=== PATIENT | male | born 1960 | race Caucasian/White ===

== ENCOUNTER → 2023-11-03 11:23 | Outpatient (REF) | payer MEDICARE, OTHER, SELFPAY | LOC: RAD 11:23 | PROVIDERS: ATTENDING PHYSICIAN Internal Medicine Rheumatology | DX: M54.2 Cervicalgia (principal); M25.512 Pain in left shoulder; M47.892 Other spondylosis, cervical region | CPT/HCPCS: 72040; 73010; 73030; 73130 ==

== ENCOUNTER → 2024-07-18 11:18 | Outpatient (REF) | payer MEDICARE, OTHER, SELFPAY | LOC: RAD 11:18 | PROVIDERS: ATTENDING PHYSICIAN Family Medicine | DX: S22.41XD Multiple fractures of ribs, right side, subsequent encounter for fracture with routine healing (principal) | CPT/HCPCS: 71111 ==

== ENCOUNTER → 2024-08-06 07:16 | Outpatient (REF) | payer MEDICARE, OTHER, SELFPAY | LOC: HWRAD 07:16 | PROVIDERS: ATTENDING PHYSICIAN Internal Medicine Gastroenterology; FAMILY PHYSICIAN Family Medicine | DX: K76.81 Hepatopulmonary syndrome (principal); R14.0 Abdominal distension (gaseous); R76.8 Other specified abnormal immunological findings in serum | CPT/HCPCS: 76700 ==

== ENCOUNTER → 2024-08-09 13:02 | Outpatient (REF) | payer MEDICARE, OTHER, SELFPAY | LOC: HWRCS 13:02 | PROVIDERS: ATTENDING PHYSICIAN Nurse Practitioner Family | DX: I26.94 Multiple subsegmental thrombotic pulmonary emboli without acute cor pulmonale (principal) | CPT/HCPCS: 93306 ==

== ENCOUNTER → 2024-09-02 10:05 | Outpatient (REF) | payer MEDICARE, OTHER, SELFPAY ==
[2024-09-02 11:54] LABS: % Basophils 0.6 % (0-2); % Eosinophils 1.3 % (0-6); % Immature Granulocytes 0.5 % (0-0.5); % Lymphocytes 18.4 % (20.5-51.1); % Neutrophils 73.2 % (42.2-75.2); Absolute Basophils 0.1 10^3/uL (0-0.2); Absolute Eosinophils 0.2 10^3/uL (0-0.7); Absolute Immature Granulocytes 0.1 10^3/uL (0-0.05); Absolute Lymphocytes 2.7 10^3/uL (1.2-3.4); Absolute Monocytes 0.9 10^3/uL (0.1-0.6); Absolute Neutrophils 10.6 10^3/uL (1.4-6.5); Hematocrit 44.4 % (39.0-52.0); Mean Corp Hgb Conc. 31.5 g/dL (33.0-37.0); Mean Corpuscular Hgb 28.5 pg (27.0-31.0); Mean Corpuscular Volume 90.2 fL (80.0-94.0); Mean Platelet Volume 11.7 fL (7.4-10.4); Nucleated Red Blood Cells % 0 % (-); Platelet Count 240 10^3/uL (130-400); Red Blood Cell Count 4.92 10^6/uL (4.70-6.10); Red Cell Dist. Width 14.8 % (11.5-14.5); White Blood Cell Count 14.5 10^3/uL (4.8-10.8)
[2024-09-02 12:03] LABS: INR 0.99; PT 13.4 Sec (11.4-14.6)
[2024-09-02 12:18] LABS: HDL Cholesterol 62 mg/dl; LDL Cholesterol, Calculated 70 mg/dl; Total Cholesterol 155 mg/dl (50-199); Triglyceride 116 mg/dl (10-149); Very Low Density Lipoprotein 23 mg/dl (0-30)
[2024-09-02 12:20] LABS: ALT (SGPT) 23 U/L (0-50); AST (SGOT) 20 U/L (17-59); Albumin 4.7 g/dl (3.5-5.0); Alkaline Phosphatase 84 U/L (38-126); Blood Urea Nitrogen 21 mg/dl (9-20); Calcium 9.8 mg/dl (8.4-10.2); Carbon Dioxide 30 mmol/L (22-30); Chloride 98 mmol/L (98-107); Creatine Phosphokinase 48 U/L (55-170); Glucose 86 mg/dl (70-99); Potassium 5.1 mmol/L (3.5-5.1); Sodium 142 mmol/L (135-145); Total Bilirubin 0.4 mg/dl (0.2-1.3); Total Protein 7.8 g/dl (6.3-8.2); eGFR > 60.00
[2024-09-02 12:39] LABS: Free T4 1.12 ng/dl (0.78-2.19)
[2024-09-02 12:49] LABS: Hepatitis B Surface Antigen Negative (Negative)
[2024-09-02 12:52] LABS: AFP Male/Tumor Marker 3.53 ng/ml
[2024-09-02 12:53] LABS: TSH 1.94 uIU/ml (0.47-4.68)
[2024-09-02 13:06] LABS: Erythrocyte Sed Rate 24 mm/hour (0-20)
[2024-09-02 13:07] LABS: Hepatitis A Antibody, Total Negative (Negative); Hepatitis B Core Ab, Total Reactive (Negative); Hepatitis B Surface Antibody Positive; Hepatitis C Antibody Negative (Negative)
[2024-09-02 15:35] LABS: Glycohemoglobin (HgbA1c) 6.5 % (4.0-5.6)
[2024-09-04 11:48] LABS: Quantiferon Mitogen minus NIL 9.97 IU/mL; Quantiferon NIL 0.03 IU/mL; Quantiferon Plus TB1 minus NIL 0.01 IU/mL (<=0.34); Quantiferon Plus TB2 minus NIL 0.01 IU/mL (<=0.34); Quantiferon TB Gold Plus Negative (Negative)
[2024-09-05 00:59] LABS: HBV Quant by NAAT IU/mL Not Detected; HBV Quant by NAAT Interp Not Detected (Not Detected); HBV Quant by NAAT Log IU/mL Not Detected log IU/mL
== END ==
LOC: REG 10:05
PROVIDERS: ATTENDING PHYSICIAN Nurse Practitioner Family; FAMILY PHYSICIAN Family Medicine; OTHER PHYSICIAN Internal Medicine Gastroenterology; REFERRING PHYSICIAN Internal Medicine Rheumatology
DX: E11.9 Type 2 diabetes mellitus without complications (principal); L40.59 Other psoriatic arthropathy; K76.0 Fatty (change of) liver, not elsewhere classified; R14.0 Abdominal distension (gaseous); R76.8 Other specified abnormal immunological findings in serum; M79.10 Myalgia, unspecified site; E11.59 Type 2 diabetes mellitus with other circulatory complications; E03.9 Hypothyroidism, unspecified; R97.8 Other abnormal tumor markers
CPT/HCPCS: 36415; 80053; 80061; 82105; 82550; 83036; 84439; 84443; 85025; 85610; 85652; 86140; 86480; 86704; 86706; 86708; 86803; 87340; 87517

== ENCOUNTER 2025-01-24 20:37 | Inpatient (IN) | payer MEDICARE, OTHER, SELFPAY ==
[2025-01-24] VITALS (10 sets, daily range): BP systolic 111–160; BP diastolic 76–99; BMI 32.6; BMI 31.3
[2025-01-24 13:03] LABS: % Basophils 0.8 % (0-2); % Eosinophils 2.6 % (0-6); % Immature Granulocytes 0.5 % (0-0.5); % Lymphocytes 14.2 % (20.5-51.1); % Neutrophils 72.9 % (42.2-75.2); Absolute Basophils 0.1 10^3/uL (0-0.2); Absolute Eosinophils 0.4 10^3/uL (0-0.7); Absolute Immature Granulocytes 0.1 10^3/uL (0-0.05); Absolute Lymphocytes 2.3 10^3/uL (1.2-3.4); Absolute Monocytes 1.4 10^3/uL (0.1-0.6); Absolute Neutrophils 11.6 10^3/uL (1.4-6.5); Hematocrit 47.3 % (39.0-52.0); Mean Corp Hgb Conc. 33.8 g/dL (33.0-37.0); Mean Corpuscular Volume 85.8 fL (80.0-94.0); Mean Platelet Volume 10.8 fL (7.4-10.4); Nucleated Red Blood Cells % 0 % (-); Platelet Count 282 10^3/uL (130-400); Red Blood Cell Count 5.51 10^6/uL (4.70-6.10); Red Cell Dist. Width 15.6 % (11.5-14.5)
[2025-01-24 13:25] LABS: ALT (SGPT) 31 U/L (0-50); AST (SGOT) 32 U/L (17-59); Albumin 4.3 g/dl (3.5-5.0); Alkaline Phosphatase 81 U/L (38-126); Blood Urea Nitrogen 17 mg/dl (9-20); Calcium 9.9 mg/dl (8.4-10.2); Carbon Dioxide 29 mmol/L (22-30); Chloride 101 mmol/L (98-107); Glucose 164 mg/dl (70-99); Potassium 4.9 mmol/L (3.5-5.1); Sodium 140 mmol/L (135-145); Total Bilirubin 0.8 mg/dl (0.2-1.3); Total Protein 7.6 g/dl (6.3-8.2); eGFR > 60.00
[2025-01-24 13:29] LABS: INR 0.96; PT 13.1 Sec (11.4-14.6)
[2025-01-24 13:44] LABS: NT-proBNP 4950 pg/ml; Troponin I 0.209 ng/ml
--- NOTE | 2025-01-24 14:23 | ED.GENMED ---
History of Present Illness
General
Chief Complaint: Swelling
Source: patient
Exam Limitations: none
Time Seen by Provider: 01/24/25 14:11
History of Present Illness
History of Present Illness:
64-year-old male presents with increasing swelling in the legs and dyspnea on exertion. He was recently started on Celebrex for his rheumatoid arthritis and he felt this was initially related to this medicine. He denies chest pain. He does have a
history of pulmonary embolism. He is no longer on blood thinners. No recent travel. No fevers. No other complaints at this time. History of NIDDM
Past History
Past History
ED Past Medical History: HTN, Hypercholesterolemia, Hypothyroidism and Other (BECK on CPAP, Psoriatic arthritis, bilateral PEs March, Hep B)
ED Past Surgical History: Orthopedic (laminectomy) and Other (Hernia, )
Social History
Tobacco: Former smoker
Alcohol: Occasional
Drug: None
Personal:
Living: with family
Phy Exam
Physical Exam
Physical Exam:
General: Well-appearing male no acute respiratory distress
HEENT: Normocephalic atraumatic
Heart: Regular rate and rhythm
Lungs: Clear no obvious wheeze or rales
Extremities: Mild pitting edema bilateral lower extremities
Abdomen is soft nontender
Scores
Heart Failure Risk
Heart Failure Risk Score: Not Applicable
Course
Orders/Labs/Results
Orders:
Orders
01/24/25 12:49
Electrocardiogram (*1) Urgent
Reason for Study: Other
Other Reason for Exam: Respiratory Distress
Cardiac Monitoring- Treatment ONCE
EKG- Treatment ONCE
IV Insert/Care/Rem.- Treatment PRN
CR Chest - 2 Views Urgent
Comment:
Reason For Exam: respiratory distress
O2 Therapy [RESP] Urgent
Titrate/Wean O2 to maintain O2 sat greater than (%): 93
Special Instructions: TO MAINTAIN CONTINUOUS O2 SATS >/= 93%
Pulse Ox/cont/shift [RESP] Urgent
Quantity: 1
Special Instructions: continuous pulse ox
01/24/25 12:55
Complete Blood Count/With Diff Urgent
Comprehensive Metabolic Panel Urgent
NT-proBNP Urgent
PT/INR [Prothrombin Time] Urgent
Troponin I Urgent
01/24/25 14:21
CT Chest PE Study Urgent
Comment:
Reason For Exam: sob, history of PE
01/24/25 15:14
HYDROmorphone [Dilaudid] 0.5 mg IV NOW STA
Ondansetron Injectable [Zofran] 4 mg IV NOW STA
01/24/25 16:34
Furosemide [Lasix] 60 mg IV NOW STA
Abnormal Lab Results
01/24/25
12:55
WBC 16.0 H 10^3/uL
(4.8-10.8)
RDW 15.6 H %
(11.5-14.5)
MPV 10.8 H fL
(7.4-10.4)
Abs Immat Gran (auto) 0.1 H 10^3/uL
(0-0.05)
Absolute Neuts (auto) 11.6 H 10^3/uL
(1.4-6.5)
Absolute Monos (auto) 1.4 H 10^3/uL
(0.1-0.6)
Lymphocytes % 14.2 L %
(20.5-51.1)
Glucose 164 H mg/dl
(70-99)
Troponin I 0.209 H* ng/ml
01/24/25 12:55
01/24/25 12:55
Vital Signs
Initial and Last Documented VS:
Initial Vital Signs
Temp Pulse Resp BP Pulse Ox
97.6 F 111 18 136/92 97
01/24/25 12:45 01/24/25 12:45 01/24/25 12:45 01/24/25 12:45 01/24/25 12:45
Last Documented Vital Signs
Temp Pulse Resp BP Pulse Ox
97.6 F 116 18 160/99 94
01/24/25 12:45 01/24/25 14:31 01/24/25 12:45 01/24/25 14:31 01/24/25 14:31
MDM/Problems Addressed
Differential Diagnosis Includes:
Increasing leg swelling dyspnea on exertion. Consider heart failure PE versus ACS
Troponin is elevated here at 0.2. EKG shows sinus rhythm without ischemic changes. BNP also elevated. Patient does have a history of PE but not currently anticoagulated.
PE study ordered secondary to shortness of breath and history of PE.
*Critical Care Note
Total Time (30-74mins, 75-104mins- exclusive of procedures): Not Applicable
Update Note
Update Note:
PE study negative. Troponin and BNP elevated. Suspect volume overload possibly CHF. Lasix ordered. Will admit to hospital
ED Attending Note
-
Portions of this chart may have been created with voice recognition software.� Occasional wrong word or��sound alike� substitutions may have occurred due to the inherent limitations of voice recognition software.
Discharge Plan
Departure
Patient Disposition: Admit
Date of Disposition: 01/24/25
Time of Disposition: 16:35
Presentation/result/management discussed w/ accepting MD/DO: Hospitalist
Discharge Problem:
CHF (congestive heart failure)
Prescriptions:
No Action
oxycodone 5 MG tablet
5 mg PO QID
Movantik 25 MG tablet
25 mg PO HS
prednisone 10 MG tablet
5 mg PO BID
amitriptyline 50 MG tablet
125 mg PO HS
buspirone [BuSpar] 5 mg Tablet
7.5 mg PO TID
metformin 850 mg Tablet
850 mg PO BID
baclofen 10 mg Tablet
10 mg PO TID
glimepiride 4 mg Tablet
4 mg PO QPM
levothyroxine [Synthroid] 150 mcg Tablet
150 mcg PO DAILY
Patient Comments:
patient alway been 150mcg not 125mcg
rosuvastatin [Crestor] 5 mg Tablet
5 mg PO QPM
oxycodone [OxyContin] 30 mg Tablet,Oral Only,Ext.Rel.12 Hr
30 mg PO BID
Referrals:
Kevon Bender DO [Family Provider] -
Interventions
Interventions:
*Risk Screen - Suicide Last Done: 01/24/25 12:45
*General Assessment Last Done: 01/24/25 12:45
*Neglect/Abuse Screening Last Done: 01/24/25 12:45
*ED- Fall Risk Assessment Last Done: 01/24/25 12:45
Discharge Date and Time
Print Language: SERBIAN
[2025-01-24] MEDS: ZOFRAN 4 MG IV (15:20)
[2025-01-24] MEDS: DILAUDID 0.5 MG IV (15:21)
[2025-01-24] MEDS: LASIX 60 MG IV (17:05)
--- NOTE | 2025-01-24 17:58 | HPS.HSE ---
Family Physician
-
Family Physician: Kevon Bender
Chief Complaint
-
Weakness headache shortness of breath nausea increased swelling bilateral leg
History of Present Illness
64-year-old male complaining of weakness, headache, shortness of breath, nausea with increased swelling to bilateral legs over the past 2 to 3 days. He reports recently starting on Celebrex 7 days ago for rheumatoid arthritis and thought this was a
side effect. He stopped the Celebrex 2 days ago due to feeling sick. He is actively complaining of severe nausea which he normally never has he denies any dyspepsia at all. He has history of sleep apnea stopped using his pillow nasal CPAP a few
months ago. He has been sleeping in a recliner due to chronic pain in his joints, back and anxiety when lying down he feels like he cannot catch his breath. He also had his BuSpar increased to twice daily from daily he is taking 7.5 mg twice a day
but states he still is extremely anxious all the time having panic attacks that he never used to have. He does not think that his 's diagnosis of breast cancer and her appointments has increased any kind of stress for him.
The patient has past medical history of rheumatoid arthritis, psoriatic arthritis, sleep apnea noncompliant nasal C pillow, chronic pain on chronic oral opiates, HTN, HLD, DM 2, hypothyroidism, bilateral PEs March 2021, hepatitis B, former smoker,
history of laminectomy, class I obesity.
Medical History
Past Medical History
Past Medical History: Reports Other
Additional Past Medical History:
rheumatoid arthritis
psoriatic arthritis
chronic pain on chronic oral opiates
HTN
HLD
DM 2
hypothyroidism
bilateral PEs March 2021
hepatitis B
former smoker
history of laminectomy
Past Surgical History: Reports Other
Additional Past Surgical History:
Laminectomy
Hernia repair
Social History
Tobacco: Non-smoker
Alcohol: None
Drug: None
Personal:
Living: With Family ()
Employment: Retired
Family History
Family History: Not pertinent
Allergies / Home Medications
Allergies reflects when Allergies were last updated in [facility].
Home Medications with original date entered in [facility]
Allergy/Medication List:
Allergies
Allergy/AdvReac Type Severity Reaction Status Date / Time
erythromycin base Allergy Unknown Verified 07/07/21 13:34
Penicillins Allergy Unknown Verified 07/07/21 13:34
tetracycline Allergy Unknown Verified 07/07/21 13:34
Home Medications
naloxegol 25 mg tablet (Movantik) 25 mg PO HS Constipation 04/09/21
oxycodone 5 mg tablet 5 mg PO QID 04/09/21
amitriptyline 50 mg tablet 125 mg PO HS mental health 04/13/21
prednisone 10 mg tablet 5 mg PO BID Anti-inflammatory 04/13/21
baclofen 10 mg tablet 10 mg PO TID 01/24/25
buspirone 5 mg tablet 7.5 mg PO TID 01/24/25
glimepiride 4 mg tablet 4 mg PO QPM 01/24/25
levothyroxine 150 mcg tablet (Synthroid) 150 mcg PO DAILY 01/24/25
metformin 850 mg tablet 850 mg PO BID 01/24/25
oxycodone 30 mg tablet,crush resistant,extended release 12 hr (OxyContin) 30 mg PO BID 01/24/25
rosuvastatin 5 mg tablet (Crestor) 5 mg PO QPM 01/24/25
Review of Systems
-
History Source: Patient
A 12 point ROS was completed and negative except as noted: Yes
Constitutional: Denies Fever or Chills
EENT: Denies Sore Throat or Runny Nose
Respiratory: Reports Trouble Breathing; Denies Cough
Cardiac: Denies Chest Pain or Syncope
Abdomen/GI: Reports Nausea; Denies Abdominal Pain, Vomiting, Diarrhea, Constipated, Bloody Stools or Black Stools
: Denies Dysuria, Frequency, Flank Pain, Incontinence or Difficulty Voiding
Musculoskeletal: Reports Edema (Trace bilateral ankles); Denies Joint Pain
Skin: Denies Itching or Rash
Neurological: Reports Headache; Denies Dizzy
Endocrine: Reports No Symptoms
Hematologic/Lymphatic: Reports No Symptoms
Psych: Reports Anxiety
Physical Exam
Vital Signs
Vital Signs
Temp Pulse Resp BP Pulse Ox
97.6 F 111 18 123/84 94
01/24/25 12:45 01/24/25 17:05 01/24/25 12:45 01/24/25 17:05 01/24/25 17:23
Physical Exam
General: No Fever or Chills
HEENT: NormoCephalic, Anicteric, Moist mucous membranes, PERRLA, [place] Conjunctivae and No Ptosis
Respiratory: Clear; No Wheezes, Rales or Rhonchi
Cardiac: S1/S2 and Regular Rhythm; No Murmur, Rub, Gallop or Peripheral Edema
Breast: Deferred by me
GI: Soft, Non Tender, Non Distended, Normal Bowel Sounds and No Hepatosplenomegaly
Rectal: Deferred by Provider
Genito-urinary: Deferred by me
Musculoskeletal: No Clubbing, No Cyanosis, Edema, Left Lower Extremity (Trace to ankle) and Edema, Right Lower Extremity (Trace to ankle); No Edema, Left Upper Extremity or Edema, Right Upper Extremity
Skin: Warm, Dry and Other (1 small psoriatic plaque left upper bicep)
Neuro: AO x 3, No Motor Deficits, Nonfocal/grossly intact, Cranial Nerves Intact and No Sensory Deficits; No Slurred Speech, Facial Droop, Tremors or Sedated
Psych: Anxious
Laboratory Results
-
01/24/25 12:55
01/24/25 12:55
Laboratory Results
PT 13.1 Sec (11.4-14.6) 01/24/25 12:55
INR 0.96 01/24/25 12:55
Total Bilirubin 0.8 mg/dl (0.2-1.3) 01/24/25 12:55
AST 32 U/L (17-59) 01/24/25 12:55
ALT 31 U/L (0-50) 01/24/25 12:55
Alkaline Phosphatase 81 U/L (38-126) 01/24/25 12:55
Troponin I 0.209 ng/ml H* 01/24/25 12:55
Impression/Plan
-
Impression/plan:
Admit to IVU
#NSTEMI
HOLD Celebrex started 7 days ago-patient stopped on 01/22/2025
Troponin 0.209 will trend
asa 325 mg now , 81 mg daily
Check lipid profile, HgbA1c
- clear liquid diet
-Consult [facility]ology
EKG: Sinus tach 105 bpm, QTc 475 MS T wave abnormality anterior lateral leads change from March 2021
2D echo 04/12/2021: EF 60-62%, normal LVS LVSF, normal RVS/RVF trace MR/TR, PASP 33 mmHg
#Rheumatoid arthritis
#Psoriatic arthritis
Patient started Celebrex 2 days ago WILL HOLD given NSTEMI and CHF
- Patient applies clobetasol ointment to psoriatic plaques has 1 small area to left upper bicep
#Acute CHF unclear type suspect diastolic given bilateral leg edema
BNP 4950
-640 mg given in ER would hold further dosing upon cardiac eval
-I/O, daily weights
-Check 2D echo
-Consult [facility] cardiology
CXR: Mild left lower lobe atelectasis versus scarring no
CT PE study: No evidence of PE
no acute abnormality identified in the chest
#Sleep apnea noncompliant with nasal pillow due to feeling anxious
Recommended to patient to retry nasal pillow while in the hospital he is willing
#Acute on chronic leukocytosis due to chronic prednisone use
WBC 16.3 no left shift, afebrile(levels vary from 11.9-16)
Patient on prednisone 5 mg twice daily
# Chronic pain on chronic oral opiates/chronic back pain with leg spasms
#Chronic constipation due to above opiates
- Continue OxyContin 30 mg twice daily, oxycodone 5 mg 4 times daily, baclofen 10 mg 3 times daily
- Continue Movantik 25 mg at bedtime
#DM 2
Hold metformin 850 mg p.o. twice daily patient received IV contrast on 01/24/2025
- Accu-Cheks with SSI, check HgbA1c
- Continue glimepiride 4 mg every afternoon
#HTN
-BP 123/84
HLD
- Continue Crestor 5 mg every afternoon
Hypothyroidism
- Continue levothyroxine 150 mcg p.o. daily
Bilateral PEs March 2021
#Anxiety
- Continue BuSpar 7.5 mg 3 times daily, amitriptyline 125 mg p.o. at bedtime
Other PMH:
Hepatitis B
former smoker
Class I obesity�BMI 32.6
Affects all aspects of care
Weight loss recommended
DVT prophylaxis
Subcu heparin
Full code
[2025-01-24] MEDS: TIGAN 200 MG IM (19:00)
[2025-01-24 19:31] LABS: Troponin I 0.194 ng/ml
--- NOTE | 2025-01-24 19:37 | W.PN.UPDATE ---
Update Note
Progress Note Update
This note serves as an addendum to the H&P by [employer] promotional sales HENRIQUE
Haydee JUANA
HPI
64M pw weakness, shortness of breath, nausea increased swelling bilateral leg.
- reports recently starting on Celebrex 7 days ago for rheumatoid arthriti
- He stopped the Celebrex 2 days ago due to feeling sick.
- actively complaining of severe nausea which he normally never has he denies any dyspepsia at all.
- HX BECK stopped using his pillow nasal CPAP a few months ago.
- has been sleeping in a recliner due to chronic pain in his joints, back and anxiety when lying down he feels like he cannot catch his breath.
PMHX :
Rheumatoid arthritis, psoriatic arthritis, sleep apnea noncompliant nasal C pillow, chronic pain on chronic oral opiates, HTN, HLD, DM 2, hypothyroidism, bilateral PEs March 2021, hepatitis B, former smoker, history of laminectomy, class I obesity.
Vital Signs
Temp Pulse Resp BP Pulse Ox
97.6 F 113 17 123/84 93
01/24/25 12:45 01/24/25 19:00 01/24/25 19:00 01/24/25 17:05 01/24/25 19:00
PE
Gen: Non toxic but Looks uncomfortable due to nausea and chr intermittent leg cramps sincne childhood
HEENT: aincteric
Neck: supple
Lungs: CTA
Cor: RRR , S1 S2, No Murmur,
Abdomen: soft, Non Tender, Non Distended, Normal Bowel Sounds
PROJECT ENGINEER: AAO3, NFND
MS: symmetric trace ankle Edema
Psych: anxious
Abnormal Lab Results
01/24/25 01/24/25
12:55 18:57
WBC 16.0 H
RDW 15.6 H
MPV 10.8 H
Abs Immat Gran (auto) 0.1 H
Absolute Neuts (auto) 11.6 H
Absolute Monos (auto) 1.4 H
Lymphocytes % 14.2 L
Glucose 164 H
Troponin I 0.209 H* 0.194 H*
CXR: Mild left lower lobe atelectasis versus scarring
CT PE study: No evidence of PE. No acute abnormality identified in the chest
EKG: Sinus tach 105 bpm, QTc 475 MS T wave abnormality anterior lateral leads change from March 2021
04/12/2021 ECHO : EF 60-62%, normal LVS LVSF, normal RVS/RVF trace MR/TR, PASP 33 mmHg
ASSESSMENT & PLAN
NSTEMI
- Abn EKG with T wave abnormality anterior lateral leads c
- Troponin 0.209 and trending down
- hold Celebrex started 2 days ago
- ASA loading and baby ASA daily
- trend TPNI
- Consult [facility]
Acute CHF unclear type
Bilateral trace ankle edema
BNP 4950
- IV lasix 40 x1
- Hold further IV lasix till seen by Card
- ECHO in AM
- I/O, daily weights
- [facility] card consult
DMT2 HX
- Hold metformin - patient received IV contrast on 01/24/2025
- Accu-Cheks with SSI, check HgbA1c
- Continue glimepiride 4 mg every afternoon
Benign HTN
-BP 123/84
HLD
- Continue Crestor daily
Hypothyroidism
- Continue levothyroxine 150 mcg p.o. daily
Rheumatoid arthritis HX
Psoriatic arthritis HX
- Patient started Celebrex 2 days ago WILL HOLD given NSTEMI and CHF
- Patient applies clobetasol ointment to psoriatic plaques has 1 small area to left upper bicep
Other PMH:
Hepatitis B
former smoker
Class I obesity�BMI 32.6 : Affects all aspects of care
DVT Px: SQH
Full Code
IVU
[2025-01-24] MEDS: ASPIRIN 325 MG PO (19:41)
[2025-01-24] MEDS: LIORESAL 10 MG PO ×2 (19:41→21:59)
--- NOTE | 2025-01-24 21:15 | CON.CAR ---
Consultation
Consultation Request
Date/Time Consultation Requested: 01/24/25 6:30pm
Date/Time Consultation Performed: 01/24/25 8:45pm
Requesting Provider: Dr Lay
Performing Provider: Dr Granados
Reason for Consultation: CHF
Medical History
-
Chief Complaint: nausea/sob
History of Present Illness:
64-year-old male with past medical history of psoriatic/rheumatoid arthritis, hypertension, hyperlipidemia, sleep apnea, diabetes, chronic steroid use, bilateral pulmonary embolism and hypothyroidism who presents with 5 days of leg edema, weakness,
nausea, edema, and shortness of breath. He has taken prednisone intermittently for 4 years. 7 days ago he started Celebrex for his chronic pain/rheumatoid arthritis and started feeling worse several days then. He had orthopnea, a 10 pound weight
gain, and shortness of breath. He has been sleeping in a recliner for months. He does get occasional chest aches but no overt chest tightness or exertional chest pressure. His energy is poor. He stopped the Celebrex several days ago. He has
abdominal pains and intermittent nausea. He takes chronic OxyContin and is a previous smoker.
Past Medical History
Past Medical History: HTN, Hypercholesterolemia, Hypothyroidism, NIDDM and Other (Obesity, chronic steroid and opiate use, rheumatoid arthritis, psoriatic arthritis, hepatitis B, sleep apnea)
Past Surgical History: Other (Laminectomy)
Social History
Tobacco: Former Smoker
Alcohol: Occasional
Drug: None
Personal:
Living: With Family
Employment: Disabled
Family History
Family History: CAD and Hypertension
Allergies / Home Medications
Allergy/AdvReac Type Severity Reaction Status Date / Time
erythromycin base Allergy Unknown Verified 07/07/21 13:34
Penicillins Allergy Unknown Verified 07/07/21 13:34
tetracycline Allergy Unknown Verified 07/07/21 13:34
�Medication �Instructions �Recorded �Confirmed �Type
naloxegol 25 mg tablet (Movantik) 25 mg PO HS Constipation 04/09/21 01/24/25 History
oxycodone 5 mg tablet 5 mg PO QID 04/09/21 01/24/25 History
amitriptyline 50 mg tablet 125 mg PO mental health 04/13/21 01/24/25 History
prednisone 10 mg tablet 5 mg PO BID Anti-inflammatory 04/13/21 01/24/25 History
baclofen 10 mg tablet 10 mg PO TID 01/24/25 01/24/25 History
buspirone 5 mg tablet 7.5 mg PO TID 01/24/25 01/24/25 History
glimepiride 4 mg tablet 4 mg PO QPM 01/24/25 01/24/25 History
levothyroxine 150 mcg tablet 150 mcg PO DAILY 01/24/25 01/24/25 History
(Synthroid)
metformin 850 mg tablet 850 mg PO BID 01/24/25 01/24/25 History
oxycodone 30 mg tablet,crush 30 mg PO BID 01/24/25 01/24/25 History
resistant,extended release 12 hr
(OxyContin)
rosuvastatin 5 mg tablet (Crestor) 5 mg PO QPM 01/24/25 01/24/25 History
Review of Systems
-
History Source: Patient
Constitutional: Weight Gain and Fatigue
Respiratory: Trouble Breathing
Cardiac: No Symptoms
Abdomen/GI: Nausea
: No Symptoms
Musculoskeletal: Joint Pain, Muscle Pain and Edema
Skin: No Symptoms
Neurological: No Symptoms
Endocrine: No Symptoms
Hematologic/Lymphatic: No Symptoms
Physical Exam
Vital Signs
Temp Pulse Resp BP Pulse Ox
97.6 F 121 15 116/95 90
01/24/25 12:45 01/24/25 20:30 01/24/25 20:30 01/24/25 20:00 01/24/25 19:04
Lab Results
01/24/25 12:55
01/24/25 12:55
Troponin I 0.194 ng/ml H* 01/24/25 18:57
Zfc-[id number]-Xekteudsobd Pept 4950 pg/ml 01/24/25 12:55
Physical Exam
General: Well Developed and No Apparent Distress
HEENT: Normocephalic and Anicteric
Respiratory: Rhonchi and Non Labored Respirations
Cardiac: S1/S2, Regular Rhythm and Murmur (Tachycardic, 1/6 systolic murmur left sternal border)
GI: Soft, Tender and Distended
Musculoskeletal: Edema
Skin: Warm and Dry
Neuro: AO x 3
Psych: Calm
Impression / Plan
-
Assessment:
Acute heart failure with preserved ejection fraction
Abnormal troponin/nonischemic myocardial injury
Hypertension
Hyperlipidemia
Diabetes type 2
History of bilateral pulmonary embolism 2021
Hepatitis B
Rheumatoid arthritis/psoriatic arthritis on chronic opioids
Hypothyroidism
Chronic steroid use.
Echo July 2024, EF 55 6%, mild LVH, no significant valve disease with PA pressure 30
EKG with sinus tachycardia and anterior T wave abnormalities
CT scan 01/24/2025, no pulmonary embolism
Plan:
He presents with volume overload, abnormal proBNP and acute heart failure with presumed preserved ejection fraction. I reviewed his last echocardiogram from 2023 which had a normal EF, mild LVH and no significant valve disease.
Clinically he is volume overloaded and we will start Lasix 40 mg IV daily. His EKG is also abnormal with an abnormal troponin. I suspect his ejection fraction may have declined with his sinus tachycardia and abnormal T wave abnormalities.
We will repeat an echocardiogram. He likely will also need an ischemic evaluation as I suspect he may have significant coronary artery disease.
Continue aspirin 81 mg daily. Would start Toprol 25 mg daily.
Check TSH and free T4.
His troponin is abnormal at 0.2 but has decreased down to 0.19. Pending the results of his echocardiogram he may need a cardiac catheterization.
Data Reviewed
-
EKG: Report Reviewed by me
CT Scan: Report Reviewed by me
Medical Tests (Nuc Med, Echo etc): Report Reviewed by me
Labs: Labs Reviewed by me
Old Records: Reviewed
[2025-01-24 21:50] LABS: Glucose - Point of Care 149 mg/dl (70-99)
[2025-01-24] MEDS: HEPARIN 5000 UNITS SC (21:59)
[2025-01-24] MEDS: BUSPAR 7.5 MG PO (21:59)
[2025-01-24] MEDS: DELTASONE 5 MG PO (21:59)
[2025-01-24] MEDS: ROXICODONE 5 MG PO (21:59)
[2025-01-24] MEDS: ELAVIL 125 MG PO (21:59)
[2025-01-24] MEDS: OXYCONTIN (CONTROLLED RELEASE) 30 MG PO (22:49)
--- NOTE | 2025-01-24 23:15 | PTCARENOTE ---
Patient received from ED via stretcher. Ambulated to bed with single point cane. Patient denies chest pain. Endorses right lower leg cramping and severe pain. Scheduled pain medications administered, see MAR. Patient's home medication, oxycodone
5mg, counted at bedside and then taken to pharmacy to be stored until discharge. Patient acknowledged that his home medication would be kept in the pharmacy until discharge, signed home medication form. Sinus tach on monitor. Oxygen saturation on
room air initially 98%, once the patient fell asleep SaO2 noted to decrease to 88-89%, 2L NC applied as patient feels he cannot tolerate CPAP due to anxiety. Plan of care discussed with patient. Call nelson within reach. Care ongoing.
[2025-01-25] VITALS (8 sets, daily range): BP systolic 104–118; BP diastolic 66–81; BMI 31.2
[2025-01-25 04:22] LABS: % Basophils 0.9 % (0-2); % Eosinophils 1.9 % (0-6); % Immature Granulocytes 0.4 % (0-0.5); % Lymphocytes 18.6 % (20.5-51.1); % Monocytes 12.9 % (1.7-9.3); % Neutrophils 65.3 % (42.2-75.2); Absolute Basophils 0.1 10^3/uL (0-0.2); Absolute Eosinophils 0.3 10^3/uL (0-0.7); Absolute Immature Granulocytes 0.1 10^3/uL (0-0.05); Absolute Lymphocytes 2.5 10^3/uL (1.2-3.4); Absolute Monocytes 1.7 10^3/uL (0.1-0.6); Absolute Neutrophils 8.7 10^3/uL (1.4-6.5); Hematocrit 47.3 % (39.0-52.0); Hemoglobin 15.8 g/dL (13.0-18.0); Mean Corp Hgb Conc. 33.4 g/dL (33.0-37.0); Mean Corpuscular Hgb 28.9 pg (27.0-31.0); Mean Corpuscular Volume 86.6 fL (80.0-94.0); Mean Platelet Volume 10.8 fL (7.4-10.4); Nucleated Red Blood Cells % 0 % (-); Platelet Count 288 10^3/uL (130-400); Red Blood Cell Count 5.46 10^6/uL (4.70-6.10); Red Cell Dist. Width 15.8 % (11.5-14.5); White Blood Cell Count 13.4 10^3/uL (4.8-10.8)
[2025-01-25 04:48] LABS: ALT (SGPT) 29 U/L (0-50); AST (SGOT) 30 U/L (17-59); Alkaline Phosphatase 73 U/L (38-126); Blood Urea Nitrogen 23 mg/dl (9-20); Calcium 9.3 mg/dl (8.4-10.2); Carbon Dioxide 28 mmol/L (22-30); Chloride 103 mmol/L (98-107); Estimated Creatinine Clearance 82 ml/min; Glucose 172 mg/dl (70-99); HDL Cholesterol 42 mg/dl; LDL Cholesterol, Calculated 51 mg/dl; Potassium 4.9 mmol/L (3.5-5.1); Sodium 141 mmol/L (135-145); Total Bilirubin 0.7 mg/dl (0.2-1.3); Total Cholesterol 149 mg/dl (50-199); Triglyceride 284 mg/dl (10-149); Very Low Density Lipoprotein 56 mg/dl (0-30); eGFR > 60.00
[2025-01-25 05:16] LABS: TSH Reflex To Free T4 3.67 uIU/ml (0.47-4.68)
[2025-01-25 05:35] LABS: Hepatitis C Antibody Negative (Negative)
[2025-01-25] MEDS: SYNTHROID 150 MCG PO (06:07)
[2025-01-25 08:07] LABS: Glucose - Point of Care 163 mg/dl (70-99)
--- NOTE | 2025-01-25 08:25 | W.PN.CARDCBS ---
Today's Communication / Plan
-
Echo today
Uptitrate beta-linette
Ultimate SGLT2 antagonist, spironolactone, likely REGINALDO/ARB or Entresto
Start heparin
Eventual cath, timing to be determined
Impression / Plan
-
Assessment:
Acute heart failure, suspect suspect reduced EF
Abnormal troponin/nonischemic myocardial injury
Hypertension
Hyperlipidemia
Diabetes type 2
History of bilateral pulmonary embolism 2021
Hepatitis B
Rheumatoid arthritis/psoriatic arthritis on chronic opioids
Hypothyroidism
Chronic steroid use.
Echo July 2024, EF 55 6%, mild LVH, no significant valve disease with PA pressure 30
EKG with sinus tachycardia and anterior T wave abnormalities
CT scan 01/24/2025, no pulmonary embolism
Plan:
He presents with heart failure and EKG changes potentially consistent with a reduced EF and possible [id number] myocardial infarction. Symptoms of chest pain, fluid retention coincided with onset of Celebrex use.
Troponins are flat, but his EKG changes suggest an interval inferior myocardial infarction since 2020 or 2021.
Suspect LV EF may have dropped.
He has ongoing chest discomfort.It sounds GI, but is difficult to be certain.
Will check echocardiogram today, for now, switch to short acting metoprolol.
Ultimately, will likely need SGLT2 antagonist, REGINALDO or ARB, spironolactone, in addition to long-acting beta-linette, possibly consider Entresto.
If ongoing chest discomfort, and we are convinced it is potentially ischemic he may need to go to the lab today.
Progress Note - Brick Grader
Subjective
Date of Service: January 25, 2025:
64-year-old man admitted with progressive edema, weakness, weight gain and dyspnea after starting Celebrex, found to be in acute heart failure with unknown EF
PMH/PSH diabetes, pulmonary embolus 2021, hepatitis B, rheumatoid arthritis, psoriatic arthritis, hypothyroidism, chronic steroid use, laminectomy, herniorrhaphy
Current meds aspirin 81 mg a day, metoprolol ER 25 mg a day, furosemide 40 mg IV daily, subcu heparin, amitriptyline, baclofen, BuSpar, glimepiride, levothyroxine, oxycodone, rosuvastatin
112/81, pulse 95, respiratory 16, sats 96%, weight is 104.3 kg, if accurate was 109 kg on admission, complaining of 'angina'
Onset since Monday, head neck exam unremarkable, lungs are clear relatively tachycardic, JVD okay no obvious murmurs abdomen very obese extremities trace edema
White count 13.4, BUN/creatinine 23 and 1.1, potassium 4.9, troponin flat 0.190, proBNP 4950
CT chest: No pulmonary embolus
Chest x-ray possible mild vascular congestion-not impressive
ECG sinus rhythm, consider anterolateral ischemia, consider anterior ND, inferior ND
Objective
Labs:
01/25/25 04:10
01/25/25 04:10
Labs
Hgb 15.8 g/dL (13.0-18.0) 01/25/25 04:10
Hct 47.3 % (39.0-52.0) 01/25/25 04:10
Plt Count 288 10^3/uL (130-400) 01/25/25 04:10
PT 13.1 Sec (11.4-14.6) 01/24/25 12:55
INR 0.96 01/24/25 12:55
Sodium 141 mmol/L (135-145) 01/25/25 04:10
Potassium 4.9 mmol/L (3.5-5.1) 01/25/25 04:10
BUN 23 mg/dl (9-20) H 01/25/25 04:10
Creatinine 1.1 mg/dL (0.7-1.3) 01/25/25 04:10
Glucose 172 mg/dl (70-99) H 01/25/25 04:10
Troponins
05/06/1201/24/25 01/24/25
12:55 18:57 21:53
Troponin I 0.209 H* 0.194 H* 0.190 H*
Vital Signs and I&O:
Vital Signs
Temp Pulse Resp BP Pulse Ox
36.7 C 95 18 112/81 93
01/25/25 08:02 01/25/25 06:00 01/25/25 08:02 01/25/25 04:04 01/25/25 08:02
Vital Signs
Temp Pulse Resp BP Pulse Ox
36.7 C 95 18 112/81 93
01/25/25 08:02 01/25/25 06:00 01/25/25 08:02 01/25/25 04:04 01/25/25 08:02
Intake & Output
01/23/25 01/24/25 01/25/25 01/26/25
07:59 07:59 07:59 07:59
Intake Total 500 / 500
Balance 500 / 500
Physical Exam
Physical Exam
See above
[2025-01-25 08:27] LABS: Glycohemoglobin (HgbA1c) 6.6 % (4.0-5.6)
--- NOTE | 2025-01-25 08:35 | W.PN.HOSP.TC ---
Today's Communication/Plan
-
Continue Heparin Drip
See plan
Assessment / Plan
Assessment / Plan
Physical Exam
General: Not in acute distress
HEENT: Normocephalic, Moist mucous membranes
Respiratory: Rhonchi bilaterally
Cardiac: S1/S2 and Regular Rhythm
GI: Soft, Non Tender, Non Distended, Normal Bowel Sounds
Musculoskeletal: No Cyanosis. Edema, Left Lower Extremity (Trace to ankle) and Edema, Right Lower Extremity (Trace to ankle)
Skin: Warm, Dry
Neuro: AAO x 3, Nonfocal/grossly intact
Psych: Calm
Assessment/Plan
64-year-old male with past medical history of past medical history of rheumatoid arthritis, psoriatic arthritis, sleep apnea noncompliant nasal C pillow, chronic pain on chronic oral opiates, HTN, HLD, DM 2, hypothyroidism, bilateral PEs March 2021,
hepatitis B, former smoker, history of laminectomy and class I obesity, presented complaining of weakness, headache, shortness of breath, nausea with increased swelling to bilateral legs over the past 2 to 3 days. He reported recently starting on
Celebrex within 1 week prior to presentation for rheumatoid arthritis and thought this was a side effect. He stopped the Celebrex 2 days prior to presentation due to feeling sick. He has actively complaining of severe nausea which he normally
never has he denies any dyspepsia at all. He has history of sleep apnea stopped using his pillow nasal CPAP a few months ago. He has been sleeping in a recliner due to chronic pain in his joints, back and anxiety when lying down he feels like he
cannot catch his breath. He also had his BuSpar increased to twice daily from daily he is taking 7.5 mg twice a day but states he still is extremely anxious all the time having panic attacks that he never used to have. He does not think that his
's diagnosis of breast cancer and her appointments has increased any kind of stress for him.
#Presentation with weakness, headache, shortness of breath, nausea with increased swelling to bilateral lower extremities
#Acute Heart Failure, with reduced ejection fraction
#Abnormal troponin/nonischemic myocardial injury
#Possible NSTEMI prior to arrival to the hospital
#Chest Pain
-Suspected at least partly from Celebrex use
-Continue beta linette short acting
-Heparin Drip
-IV Lasix
-Echo with EF 30 to 35%
-Cardiac cath this hospitalization
-Consult [facility]
-If ongoing chest pain, contact cardiology STAT
#Rheumatoid arthritis
#Psoriatic arthritis
#Chronic Steroid Use for the above
- Patient started Celebrex 2 days prior to presentation WILL HOLD given NSTEMI and CHF
- Patient applies clobetasol ointment to psoriatic plaques has 1 small area to left upper bicep
#Sleep apnea noncompliant with nasal pillow due to feeling anxious
Recommended to patient to retry nasal pillow while in the hospital he is willing
#Acute on chronic leukocytosis due to chronic prednisone use
WBC 16.3 no left shift, afebrile(levels vary from 11.9-16)
Patient on prednisone 5 mg twice daily
# Chronic pain on chronic oral opiates/chronic back pain with leg spasms
#Chronic constipation due to above opiates
- Continue OxyContin 30 mg twice daily, oxycodone 5 mg 4 times daily, baclofen 10 mg 3 times daily
- Continue Movantik 25 mg at bedtime
#Type 2 Diabetes Mellitus
- Hold metformin 850 mg p.o. twice daily patient received IV contrast on 01/24/2025
- Accu-Cheks with SSI, check HgbA1c
- Continue glimepiride 4 mg every afternoon
#Hypertension
-Continue beta linette for now
#Hyperlipidemia
- Continue Crestor 5 mg every afternoon
#Hypothyroidism
- Continue levothyroxine 150 mcg p.o. daily
#History of Bilateral Pulmonary Emboli 2021 (or was it summer?)
- Not on anticoagulation at home per home med rec
#Anxiety
- Continue BuSpar 7.5 mg 3 times daily, amitriptyline 125 mg p.o. at bedtime
#Hepatitis B
#Former smoker
#Anxiety
-Despite recently increasing his Buspar, still he stated he still is extremely anxious all the time having panic attacks
#Obesity
#History of laminectomy
#History of herniorrhaphy
DVT Prophylaxis: Subq heparin
Code Status: Full code
Anticipated Discharge: > 48 hours
Subjective/Interval History
-
Date of Service: January 25, 2025
Patient was seen and examined. He denied any new symptoms or complaints, feeling better now.
Objective Data
-
Labs:
Laboratory Results
01/25/25
04:10
WBC 13.4 H
Hgb 15.8
Hct 47.3
Plt Count 288
Sodium 141
Potassium 4.9
Chloride 103
Carbon Dioxide 28
BUN 23 H
Creatinine 1.1
Glucose 172 H
Calcium 9.3
Total Bilirubin 0.7
AST 30
ALT 29
Alkaline Phosphatase 73
Vital Signs:
Vital Signs
Temp Pulse Resp BP Pulse Ox
98.0 F 95 18 112/81 93
01/25/25 08:02 01/25/25 06:00 01/25/25 08:02 01/25/25 04:04 01/25/25 08:02
I&O
01/24/25 01/25/25 01/26/25
06:59 06:59 06:59
Intake Total 500 / 500
Balance 500 / 500
[2025-01-25] MEDS: BUSPAR 7.5 MG PO ×3 (09:03→21:44)
[2025-01-25] MEDS: DELTASONE 5 MG PO ×2 (09:03→20:11)
[2025-01-25] MEDS: NOVOLOG FLEXPEN-LOW RESISTANCE 1 UNITS SC ×2 (09:03→13:52)
[2025-01-25] MEDS: OXYCONTIN (CONTROLLED RELEASE) 30 MG PO ×2 (09:04→20:11)
[2025-01-25] MEDS: LASIX 40 MG IV (09:04)
[2025-01-25] MEDS: ASPIR LOW (ENTERIC COATED) 81 MG PO (09:04)
[2025-01-25] MEDS: LIORESAL 10 MG PO ×3 (09:04→21:43)
[2025-01-25] MEDS: ROXICODONE 5 MG PO ×4 (09:05→21:43)
[2025-01-25 09:29] LABS: Hematocrit 48.5 % (39.0-52.0); Hemoglobin 16.1 g/dL (13.0-18.0); Mean Corp Hgb Conc. 33.2 g/dL (33.0-37.0); Mean Corpuscular Hgb 28.7 pg (27.0-31.0); Mean Corpuscular Volume 86.5 fL (80.0-94.0); Mean Platelet Volume 10.8 fL (7.4-10.4); Platelet Count 276 10^3/uL (130-400); Red Blood Cell Count 5.61 10^6/uL (4.70-6.10); Red Cell Dist. Width 15.9 % (11.5-14.5); White Blood Cell Count 10.9 10^3/uL (4.8-10.8)
[2025-01-25 09:36] LABS: APTT 27.7 Sec (23.4-35.0)
[2025-01-25] MEDS: HEPARIN SC (09:56)
[2025-01-25] MEDS: HEPARIN 25000 UNITS/250 ML IV (10:46)
[2025-01-25] MEDS: LOPRESSOR 25 MG PO ×4 (10:51→23:38)
[2025-01-25] MEDS: TIGAN 200 MG IM (11:46)
--- NOTE | 2025-01-25 12:00 | PTCARENOTE ---
Pt denies chest pain at present, repeat troponin 0.090, echo completed at bedside. Heparin drip initiated as per order, infusing at 1000u/hr. Instructed to inform staff of any pain or discomfort.
[2025-01-25 13:13] LABS: Glucose - Point of Care 176 mg/dl (70-99)
[2025-01-25] MEDS: PROTONIX IV 40 MG IV (15:48)
[2025-01-25] MEDS: NSS (PRESERVATIVE FREE) 10 ML IV (15:50)
[2025-01-25 16:58] LABS: APTT 31.2 Sec (23.4-35.0)
[2025-01-25 17:28] LABS: Glucose - Point of Care 144 mg/dl (70-99)
[2025-01-25] MEDS: NOVOLOG FLEXPEN-LOW RESISTANCE SC (17:28)
[2025-01-25] MEDS: AMARYL 4 MG PO (17:50)
[2025-01-25] MEDS: CRESTOR 20 MG PO (17:50)
--- NOTE | 2025-01-25 20:00 | PTCARENOTE ---
received pt from previous rn. pt AAOx4, NSR per tele monitor HR 80s. trace L/E edema noted. lungs decreased w/ crackles noted in the bases. pox 93% on RA. +bs. pt voiding in urinal. skin intact. piv intact infusing heparin per protocol. plan of care
discussed questions encouraged. call nelson within reach
[2025-01-25 21:17] LABS: Glucose - Point of Care 121 mg/dl (70-99)
[2025-01-25] MEDS: ELAVIL 125 MG PO (21:45)
[2025-01-25 23:03] LABS: Glucose - Point of Care 99 mg/dl (70-99)
[2025-01-25 23:28] LABS: Glucose - Point of Care 103 mg/dl (70-99)
[2025-01-26] VITALS (8 sets, daily range): BP systolic 113–150; BP diastolic 71–97; BMI 31.6
[2025-01-26 00:02] LABS: APTT 35.5 Sec (23.4-35.0)
[2025-01-26 06:00] LABS: % Basophils 1.1 % (0-2); % Eosinophils 4.2 % (0-6); % Immature Granulocytes 0.4 % (0-0.5); % Lymphocytes 22.8 % (20.5-51.1); % Monocytes 10.8 % (1.7-9.3); % Neutrophils 60.7 % (42.2-75.2); Absolute Basophils 0.1 10^3/uL (0-0.2); Absolute Eosinophils 0.4 10^3/uL (0-0.7); Absolute Lymphocytes 2.3 10^3/uL (1.2-3.4); Absolute Monocytes 1.1 10^3/uL (0.1-0.6); Absolute Neutrophils 6.2 10^3/uL (1.4-6.5); Hematocrit 46.1 % (39.0-52.0); Hemoglobin 15.1 g/dL (13.0-18.0); Mean Corp Hgb Conc. 32.8 g/dL (33.0-37.0); Mean Corpuscular Hgb 28.8 pg (27.0-31.0); Mean Platelet Volume 11.1 fL (7.4-10.4); Nucleated Red Blood Cells % 0 % (-); Platelet Count 227 10^3/uL (130-400); Red Blood Cell Count 5.24 10^6/uL (4.70-6.10); Red Cell Dist. Width 15.9 % (11.5-14.5); White Blood Cell Count 10.2 10^3/uL (4.8-10.8)
[2025-01-26 06:03] LABS: ALT (SGPT) 30 U/L (0-50); APTT 44.4 Sec (23.4-35.0); AST (SGOT) 30 U/L (17-59); Albumin 3.8 g/dl (3.5-5.0); Alkaline Phosphatase 70 U/L (38-126); Blood Urea Nitrogen 36 mg/dl (9-20); Calcium 8.9 mg/dl (8.4-10.2); Carbon Dioxide 29 mmol/L (22-30); Chloride 102 mmol/L (98-107); Estimated Creatinine Clearance 65 ml/min; Glucose 141 mg/dl (70-99); Magnesium 2.4 mg/dl (1.6-2.3); Potassium 4.7 mmol/L (3.5-5.1); Sodium 139 mmol/L (135-145); Total Bilirubin 0.7 mg/dl (0.2-1.3); Total Protein 6.8 g/dl (6.3-8.2); eGFR 55.43
[2025-01-26] MEDS: SYNTHROID 150 MCG PO (06:27)
[2025-01-26] MEDS: LOPRESSOR 25 MG PO (06:27)
[2025-01-26] MEDS: HEPARIN 25000 UNITS/250 ML IV ×2 (07:30→21:36)
[2025-01-26] MEDS: ROXICODONE 5 MG PO ×4 (08:15→21:30)
[2025-01-26] MEDS: OXYCONTIN (CONTROLLED RELEASE) 30 MG PO ×2 (08:15→20:25)
[2025-01-26] MEDS: DELTASONE 5 MG PO ×2 (08:15→20:25)
[2025-01-26] MEDS: LASIX 40 MG IV (08:16)
[2025-01-26] MEDS: PROTONIX 40 MG PO (08:16)
[2025-01-26] MEDS: LIORESAL 10 MG PO ×3 (08:16→21:30)
[2025-01-26] MEDS: ASPIR LOW (ENTERIC COATED) 81 MG PO (08:16)
[2025-01-26 08:36] LABS: Glucose - Point of Care 117 mg/dl (70-99)
--- NOTE | 2025-01-26 08:52 | W.PN.CARDCBS ---
Today's Communication / Plan
-
Hold furosemide
Consolidate beta-linette
Continue heparin aspirin
Eventual GDMT for LV dysfunction, PA
Cardiac catheterization in a.m. if renal function permits
Impression / Plan
-
Assessment:
Acute heart failure, suspect suspect reduced EF
Abnormal troponin/nonischemic myocardial injury
Hypertension
Hyperlipidemia
Diabetes type 2
History of bilateral pulmonary embolism 2021
Hepatitis B
Rheumatoid arthritis/psoriatic arthritis on chronic opioids
Hypothyroidism
Chronic steroid use.
Echo July 2024, EF 55 6%, mild LVH, no significant valve disease with PA pressure 30
EKG with sinus tachycardia and anterior T wave abnormalities
CT scan 01/24/2025, no pulmonary embolism
Echo 01/25/2025: EF 30-35%, hypokinesis in inferior and LAD distribution, apex is akinetic, moderate LVH, normal RV, normal atria, aortic sclerosis, mitral valve normal, could not determine pulmonary artery pressure
Plan:
Overall he looks much better with regards to acute heart failure. Volume status seems appropriate, no dyspnea.
It seems he had a recent kau-hl-bdqkdnxy PA based on evolution of EKG. However troponin is not dramatically elevated. He has moderate to severe LV dysfunction in the distribution of the LAD and RCA. Suspect multivessel CAD, though entities such
as Takotsubo are still on the list of possible issues.
His heart rate is better controlled on metoprolol. Will consolidate metoprolol to metoprolol ER 50 mg twice daily. Continue aspirin and heparin. Eventual GDMT as renal function, blood pressure etc. permits.
He has acute kidney injury likely related to furosemide. Creatinine is up to 1.4. Will hold furosemide.
Symptoms of nausea seem improved with proton pump inhibitor.
Presuming renal function adequate, catheterization in a.m.
Progress Note - Draw Operator
Subjective
Date of Service: January 26, 2025:
64-year-old man admitted with acute heart failure, suspected to have had possible recent [id number] PA, EF 30-35% with detectable but not elevated and declining troponin. He feels much better today. Nausea from yesterday is resolved. He had
received a proton pump inhibitor yesterday and again today.
PMH: Hypertension, hyperlipidemia, diabetes, bilateral pulmonary embolism, hepatitis B, rheumatoid and psoriatic arthritis, hypothyroidism, steroid use
Current medications: IV heparin, furosemide 40 mg a day, amitriptyline 125 mg daily, Bioseal 10 mg 3 times daily, BuSpar 7.5 mg 3 times daily, Amaryl 4 mg daily, levothyroxine 150 mcg daily, oxycodone, aspirin 81 mg a day, prednisone 5 mg twice
daily, metoprolol tartrate 25 every 6, rosuvastatin 20 mg a day, pantoprazole
113/90, pulse 79 intake and output incomplete, weight is 105.5 kg up 1.2 kg, looks much brighter, lungs are clear, regular rate and rhythm, obese, no edema
ECG with evolving anterolateral T wave inversions, anterior PA, prior inferior PA
Hemoglobin is 15, platelets are 227, BUN/creatinine are 36 and 1.4, creatinine had been 1.1, potassium is 4.7, troponin yesterday was 0.09
Objective
Labs:
01/26/25 05:38
01/26/25 05:38
Labs
Hgb 15.1 g/dL (13.0-18.0) 01/26/25 05:38
Hct 46.1 % (39.0-52.0) 01/26/25 05:38
Plt Count 227 10^3/uL (130-400) 01/26/25 05:38
PT 13.1 Sec (11.4-14.6) 01/24/25 12:55
INR 0.96 01/24/25 12:55
APTT 44.4 Sec (23.4-35.0) H 01/26/25 05:38
Sodium 139 mmol/L (135-145) 01/26/25 05:38
Potassium 4.7 mmol/L (3.5-5.1) 01/26/25 05:38
BUN 36 mg/dl (9-20) H 01/26/25 05:38
Creatinine 1.4 mg/dL (0.7-1.3) H 01/26/25 05:38
Glucose 141 mg/dl (70-99) H 01/26/25 05:38
Troponins
01/24/25 01/24/25 01/24/25
12:55 18:57 21:53
Troponin I 0.209 H* 0.194 H* 0.190 H*
01/25/25
09:15
Troponin I 0.090 H*
Vital Signs and I&O:
Vital Signs
Temp Pulse Resp BP Pulse Ox
37.1 C 79 20 113/90 95
01/26/25 07:28 01/26/25 04:00 01/26/25 07:28 01/26/25 03:31 01/26/25 07:28
Vital Signs
Temp Pulse Resp BP Pulse Ox
37.1 C 79 20 113/90 95
01/26/25 07:28 01/26/25 04:00 01/26/25 07:28 01/26/25 03:31 01/26/25 07:28
Intake & Output
01/24/25 01/25/25 01/26/25 01/27/25
07:59 07:59 07:59 07:59
Intake Total 500 / 500 600 / 600
Output Total 900 / 900
Balance 500 / 500 -300 / -300
Physical Exam
Physical Exam
See above
[2025-01-26] MEDS: NOVOLOG FLEXPEN-LOW RESISTANCE SC ×3 (08:56→17:09)
[2025-01-26] MEDS: BUSPAR 7.5 MG PO ×3 (09:41→21:31)
[2025-01-26] MEDS: TOPROL XL 50 MG PO ×2 (09:43→20:26)
[2025-01-26 12:59] LABS: Glucose - Point of Care 136 mg/dl (70-99)
[2025-01-26 13:43] LABS: APTT 48.6 Sec (23.4-35.0)
--- NOTE | 2025-01-26 15:58 | W.PN.HOSP.TC ---
Today's Communication/Plan
-
Cardiac cath tomorrow
Continue Heparin Drip
Assessment / Plan
Assessment / Plan
Physical Exam
General: Not in acute distress
HEENT: Normocephalic, Moist mucous membranes
Respiratory: Rhonchi bilaterally
Cardiac: S1/S2 and Regular Rhythm
GI: Soft, Non Tender, Non Distended, Normal Bowel Sounds
Musculoskeletal: No Cyanosis. Edema, Left Lower Extremity (Trace to ankle) and Edema, Right Lower Extremity (Trace to ankle)
Skin: Warm, Dry
Neuro: AAO x 3, Nonfocal/grossly intact
Psych: Calm
Assessment/Plan
64-year-old male with past medical history of past medical history of rheumatoid arthritis, psoriatic arthritis, sleep apnea noncompliant nasal C pillow, chronic pain on chronic oral opiates, HTN, HLD, DM 2, hypothyroidism, bilateral PEs March 2021,
hepatitis B, former smoker, history of laminectomy and class I obesity, presented complaining of weakness, headache, shortness of breath, nausea with increased swelling to bilateral legs over the past 2 to 3 days. He reported recently starting on
Celebrex within 1 week prior to presentation for rheumatoid arthritis and thought this was a side effect. He stopped the Celebrex 2 days prior to presentation due to feeling sick. He has actively complaining of severe nausea which he normally
never has he denies any dyspepsia at all. He has history of sleep apnea stopped using his pillow nasal CPAP a few months ago. He has been sleeping in a recliner due to chronic pain in his joints, back and anxiety when lying down he feels like he
cannot catch his breath. He also had his BuSpar increased to twice daily from daily he is taking 7.5 mg twice a day but states he still is extremely anxious all the time having panic attacks that he never used to have. He does not think that his
's diagnosis of breast cancer and her appointments has increased any kind of stress for him.
#Presentation with weakness, headache, shortness of breath, nausea with increased swelling to bilateral lower extremities
#Acute Heart Failure, with reduced ejection fraction
#Abnormal troponin/nonischemic myocardial injury
#Possible NSTEMI prior to arrival to the hospital
#Chest Pain
-Suspected at least partly from Celebrex use
-Beta linette: changed from short-acting to long-acting
-Continue Heparin Drip
-Continue Aspirin
-Hold further IV/PO Lasix given ALEXEI
-Echo with EF 30 to 35%
-Cardiac cath this hospitalization
-Consult [facility]
-Cardiac cath in the morning
-If ongoing chest pain, contact cardiology STAT
#Acute Kidney Injury
-Likely from Lasix, hold Lasix
#Rheumatoid arthritis
#Psoriatic arthritis
#Chronic Steroid Use for the above
- Patient started Celebrex 2 days prior to presentation WILL HOLD given NSTEMI and CHF
- Patient applies clobetasol ointment to psoriatic plaques has 1 small area to left upper bicep
#Sleep apnea noncompliant with nasal pillow due to feeling anxious
-Recommended to patient to retry nasal pillow while in the hospital he is willing
#Acute on chronic leukocytosis due to chronic prednisone use
-Patient is on prednisone 5 mg twice daily
#Chronic pain on chronic oral opiates/chronic back pain with leg spasms
#Chronic constipation due to above opiates
- Continue OxyContin 30 mg twice daily, oxycodone 5 mg 4 times daily, baclofen 10 mg 3 times daily
- Continue Movantik 25 mg at bedtime
#Type 2 Diabetes Mellitus
- Hold metformin 850 mg p.o. twice daily patient received IV contrast on 01/24/2025
- Accu-Cheks with SSI, check HgbA1c
- Continue glimepiride 4 mg every afternoon
#Hypertension
-Continue beta linette for now
#Hyperlipidemia
- Continue Crestor 5 mg every afternoon
#Hypothyroidism
- Continue levothyroxine 150 mcg p.o. daily
#History of Bilateral Pulmonary Emboli 2021 (or was it summer?)
- Not on anticoagulation at home per home med rec
#Anxiety
- Continue BuSpar 7.5 mg 3 times daily, amitriptyline 125 mg p.o. at bedtime
#Hepatitis B
#Former smoker
#Anxiety
-Despite recently increasing his Buspar, still he stated he still is extremely anxious all the time having panic attacks
#Obesity
#History of laminectomy
#History of herniorrhaphy
DVT Prophylaxis: Subq heparin
Code Status: Full code
Anticipated Discharge: 24 - 48 hours
Subjective/Interval History
-
Date of Service: January 26, 2025
Patient was seen and examined. He reported feeling 'much better.'
Objective Data
-
Labs:
Laboratory Results
01/26/25 01/26/25
05:38 13:21
WBC 10.2
Hgb 15.1
Hct 46.1
Plt Count 227
APTT 44.4 H 48.6 H
Sodium 139
Potassium 4.7
Chloride 102
Carbon Dioxide 29
BUN 36 H
Creatinine 1.4 H
Glucose 141 H
Calcium 8.9
Total Bilirubin 0.7
AST 30
ALT 30
Alkaline Phosphatase 70
Vital Signs:
Vital Signs
Temp Pulse Resp BP Pulse Ox
97.9 F 89 20 122/72 97
01/26/25 15:28 01/26/25 11:00 01/26/25 15:28 01/26/25 09:45 01/26/25 15:28
I&O
01/25/25 01/26/25 01/27/25
06:59 06:59 06:59
Intake Total 500 / 500 600 / 600
Output Total 900 / 900
Balance 500 / 500 -300 / -300
[2025-01-26 17:09] LABS: Glucose - Point of Care 122 mg/dl (70-99)
[2025-01-26] MEDS: CRESTOR 20 MG PO (18:25)
[2025-01-26 20:38] LABS: APTT 56.3 Sec (23.4-35.0)
[2025-01-26 21:30] LABS: Glucose - Point of Care 173 mg/dl (70-99)
[2025-01-26] MEDS: ELAVIL 125 MG PO (21:30)
[2025-01-27] VITALS (18 sets, daily range): BP systolic 101–153; BP diastolic 55–112; BMI 31.6
--- NOTE | 2025-01-27 01:08 | PTCARENOTE ---
Rec'd pt at change of shift. Pt AAO*3, VSS, and SR-sinus tack on TELE monitor. Pt with heparin infusing as ordered. Pt confirms chronic back/arthritis pain. Pt given all scheduled pain meds as ordered. Pt updated on plan of care and NPO at
midnight for possible heart cath in AM. Pt resting with call nelson in reach. See MAR and flowchart for full pt care and assessment.
[2025-01-27 03:34] LABS: % Basophils 1.1 % (0-2); % Eosinophils 4.2 % (0-6); % Immature Granulocytes 0.5 % (0-0.5); % Monocytes 10.9 % (1.7-9.3); % Neutrophils 64.3 % (42.2-75.2); Absolute Basophils 0.1 10^3/uL (0-0.2); Absolute Eosinophils 0.5 10^3/uL (0-0.7); Absolute Immature Granulocytes 0.1 10^3/uL (0-0.05); Absolute Lymphocytes 2.3 10^3/uL (1.2-3.4); Absolute Monocytes 1.3 10^3/uL (0.1-0.6); Absolute Neutrophils 7.7 10^3/uL (1.4-6.5); Hematocrit 47.1 % (39.0-52.0); Hemoglobin 15.1 g/dL (13.0-18.0); Mean Corp Hgb Conc. 32.1 g/dL (33.0-37.0); Mean Corpuscular Hgb 28.8 pg (27.0-31.0); Mean Corpuscular Volume 89.7 fL (80.0-94.0); Mean Platelet Volume 11.6 fL (7.4-10.4); Nucleated Red Blood Cells % 0 % (-); Platelet Count 229 10^3/uL (130-400); Red Blood Cell Count 5.25 10^6/uL (4.70-6.10); Red Cell Dist. Width 15.6 % (11.5-14.5)
[2025-01-27 03:47] LABS: APTT 77.4 Sec (23.4-35.0)
[2025-01-27 03:50] LABS: ALT (SGPT) 30 U/L (0-50); AST (SGOT) 30 U/L (17-59); Albumin 4.5 g/dl (3.5-5.0); Alkaline Phosphatase 80 U/L (38-126); Blood Urea Nitrogen 40 mg/dl (9-20); Calcium 8.8 mg/dl (8.4-10.2); Carbon Dioxide 27 mmol/L (22-30); Chloride 99 mmol/L (98-107); Estimated Creatinine Clearance 70 ml/min; Glucose 190 mg/dl (70-99); Magnesium 2.3 mg/dl (1.6-2.3); Potassium 4.5 mmol/L (3.5-5.1); Sodium 140 mmol/L (135-145); Total Bilirubin 0.7 mg/dl (0.2-1.3); Total Protein 7.3 g/dl (6.3-8.2); eGFR > 60.00
[2025-01-27] MEDS: NOVOLOG FLEXPEN-LOW RESISTANCE SC ×3 (07:48→17:46)
[2025-01-27 07:49] LABS: Glucose - Point of Care 117 mg/dl (70-99)
[2025-01-27] MEDS: ASPIR LOW (ENTERIC COATED) 81 MG PO (07:49)
[2025-01-27] MEDS: SYNTHROID 150 MCG PO (07:49)
[2025-01-27] MEDS: BUSPAR 7.5 MG PO ×3 (07:49→22:03)
[2025-01-27] MEDS: ROXICODONE 5 MG PO ×4 (07:50→22:04)
[2025-01-27] MEDS: OXYCONTIN (CONTROLLED RELEASE) 30 MG PO ×2 (07:51→19:40)
[2025-01-27] MEDS: PROTONIX 40 MG PO (07:51)
[2025-01-27] MEDS: TOPROL XL 50 MG PO ×2 (07:51→19:41)
[2025-01-27] MEDS: DELTASONE 5 MG PO ×2 (08:15→19:40)
[2025-01-27] MEDS: LIORESAL 10 MG PO ×3 (08:15→22:23)
--- NOTE | 2025-01-27 08:38 | PTCARENOTE ---
pt sr on the monitor, hr in the 70s, vss. pt offers no complaints at this time. heparin gtt running per protocol see documentation. pt resting in bed comfortably. pt educated on plan of care and pt verbalized understanding.
report called to slab conditioner supervisor.
[2025-01-27 09:30] LABS: ACT-LR - POC 274 Seconds (116-155)
[2025-01-27 09:45] LABS: ACT-LR - POC 311 Seconds (116-155)
[2025-01-27 09:57] LABS: ACT-LR - POC 295 Seconds (116-155)
--- NOTE | 2025-01-27 10:00 | ITS.CL.CATH ---
Sales Order Specialist - Catheterization
Cardiac Catheterization
Procedure Report:
LEFT HEART CATH AND CORONARY INTERVENTION
Date of Procedure: January 27, 2025
Referring: Dr. Michel Grant
PROCEDURES:
1. Left heart catheterization with coronary and single-plane left ventriculography
2. Successful stenting of the proximal right coronary artery with a 5.0 x 22 mm Tenaha stent that was postdilated with a 5.0 mm noncompliant balloon
3. Intravascular ultrasound
INDICATION: This is a 64-year-old gentleman with a past medical history notable for psoriatic and rheumatoid arthritis, hypertension, hyperlipidemia, sleep apnea, diabetes mellitus, chronic steroid use, history of bilateral pulmonary embolism and
hypothyroidism. He presented to [facility] for evaluation of lower extremity edema on 01/24/2025. He reported that he has been sleeping in a recliner for several months and experiences occasional achiness in the chest. An echocardiogram
was notable for moderate to severe LV systolic function with a visually estimated ejection fraction of 30-35% with hypokinesis noted in the mid to apical inferior wall, apical lateral wall, inferolateral wall and apex. His troponin on arrival was
0.21 ng/mL and trended lower from admission. He is now referred for coronary angiography.
ACCESS: Right radial artery, 6 Kinyarwanda sheath
HEMODYNAMICS (mmHg):
AO (s/d, m) : 107/69, 85
LV (s/d) : 103/9
LVEDP : 18
CORONARY FINDINGS
Dominance: Right
LEFT MAIN: Normal
LEFT ANTERIOR DESCENDING: The LAD arises normally from the left main and runs in the anterior interventricular groove as a large-caliber vessel. There is a medium caliber first diagonal branch that arises from the proximal one third of the LAD.
The mid LAD beyond the diagonal branch is a medium caliber vessel that has only minor irregularities. Distally, the LAD wraps around the apex supplying a portion of the inferior wall. Only minor irregularities are noted.
CIRCUMFLEX: The circumflex is a large-caliber nondominant vessel giving rise to a large OM1, small OM 2 and continues in the AV groove supplying several small to medium caliber posterolateral branches.
RIGHT CORONARY: The right coronary artery is a large-caliber dominant vessel with an 80% proximal stenosis. The remainder of the RCA has very minor luminal irregularities and supplies a large PDA.
VENTRICULOGRAPHY: Left ventriculography is performed in ALFREDO projection. The digital single-plane left ventricular ejection fraction is visually estimated at 45%. Mild anterolateral hypokinesis is noted
ANGIOPLASTY PROCEDURE DETAIL: Upon review of the diagnostic catheterization films the decision was made to proceed with percutaneous revascularization of the 80% proximal RCA stenosis. A 180 mg loading dose of ticagrelor was administered and
intravenous heparin was given while the ACT was monitored throughout the procedure. The origin of the RCA was cannulated with a 6 Kinyarwanda JR4 guiding catheter and a BMW guidewire crossed the proximal LAD stenosis and was advanced to the distal
vessel. We initially attempted to directly stent the proximal RCA, however, the stent would not cross and was removed from the artery. Balloon predilation was performed with a 3.0 x 15 mm noncompliant balloon and required high pressures to fully
expand the balloon. A 5.0 x 22 mm Tenaha stent was then advanced over the guidewire and position with angiographic and fluoroscopic guidance. The stent was implanted at nominal pressures. Intravascular ultrasound was then performed with the distal
stent diameter appearing well-approximated to the vessel wall and appropriately sized. Slow pullback was performed throughout the stented segment. The mid stent appeared slightly undersized and the entire stented segment was postdilated with a 5.0
mm noncompliant balloon to 20 erin to 20 erin with a nice angiographic result
SEDATION: 59 minutes of procedural sedation was utilized. An independent medical file clerk was present to assist with and help manage the patient's level of consciousness and physiologic status
RADIATION SUMMARY: Fluoro Time (min): 11.3, Dose (mGy): 821, DAP (Gy.cm2) : 62.8
CONCLUSIONS
1. Successful stenting of the proximal right coronary artery with a 5.0 x 22 mm Tenaha stent. Intravascular ultrasound was utilized to guide post dilation of the stent with a 5.0 mm noncompliant balloon to 20 erin
2. Mildly reduced LV systolic function
RECOMMENDATIONS
1. Uninterrupted dual antiplatelet therapy for 12 months followed by aspirin therapy for life
2. High intensity statin for goal LDL cholesterol less than 70 and preferably closer to 55 mg/dL
3. Guideline directed medical therapy for good blood pressure control less than 130/80
Copy to: Dr. Michel Grant
--- NOTE | 2025-01-27 12:06 | W.PN.HOSP.TC ---
Today's Communication/Plan
-
monitor overnight
Possible dc in AM
Assessment / Plan
Assessment / Plan
64yo M with PMHx of HTN, hypothyroidism, HLD, BECK, psoriatic arthritis, Hx of pulmonary embolism, anxiety, DM came with b/l LE swelling, found CHF and had cardiac cath on 01/27/25 with stent to RCA.
A/P:
#Acute HFrEF
#Nonischemic myocardial injury
DIuretics, daily weight, follow Cr and electrolytes, strict I&O
Cardiology follows: completed hep drip
S/P cardiac cath - cont DAPT
Echo: EF 30-35% with multiple wwall motion abnormalities
Telemetry
#DM type 2 with circulatory complications
COnt Amaryl
Accughecks, DM diet, Insulin SS
#Hypothyroidism
#Psoriatic arthritis
#anxiety
cont home meds
#Leukocytosis
unclear source
No PE on chest CT
#1.8 cm probable sebaceous cyst within the superficial subcutaneous tissues of the left mid to upper chest wall
Follow up with PCP
DVT ppx lovenox
Full code
I have spent at least 58min reviewing chart, test reuslts, communication with consultants and providing direct patient care
Anticipated Discharge: 24 - 48 hours
Subjective/Interval History
-
Date of Service: January 27, 2025
Objective Data
-
Labs:
Laboratory Results
01/27/25 01/27/25
03:10 09:50
WBC 12.0 H
Hgb 15.1
Hct 47.1
Plt Count 229
APTT 77.4 H Pending
Sodium 140
Potassium 4.5
Chloride 99
Carbon Dioxide 27
BUN 40 H
Creatinine 1.3
Glucose 190 H
Calcium 8.8
Total Bilirubin 0.7
AST 30
ALT 30
Alkaline Phosphatase 80
Vital Signs:
Vital Signs
Temp Pulse Resp BP Pulse Ox
97.5 F 79 18 115/74 96
01/27/25 11:53 01/27/25 10:30 01/27/25 11:53 01/27/25 10:30 01/27/25 11:53
I&O
01/26/25 01/27/25 01/28/25
06:59 06:59 06:59
Intake Total 600 / 600 480 / 480 120 / 120
Output Total 900 / 900 1500 / 1500
Balance -300 / -300 -1020 / -1020 120 / 120
Review of Systems
-
History Source: Patient
All other systems: Reviewed and negative
Physical Exam
-
General: No Apparent Distress
HEENT: Normocephalic
Respiratory: Clear to Auscultation
GI: Soft
Genito-urinary: No Costovertebral Tender
Musculoskeletal: No Clubbing, No Cyanosis and No Edema
Neuro: Awake, Alert, Oriented and AO x 3
Psych: Calm
[2025-01-27 12:15] LABS: Glucose - Point of Care 129 mg/dl (70-99)
--- NOTE | 2025-01-27 15:26 | CM ---
spoke to pt in room, he is prev indep, lives with his i a 2 story home with 1 step to enter. she uses a cane and has a CPAP he hasnt worn because of anxiety. he denies any dc planning needs. pln is for dc to hme when medically stable.
--- NOTE | 2025-01-27 16:32 | CM ---
priced meds with [facility] [phone]- #[id number]
pt has $556 remaining on his deductible- this will be included on the the jim of one of the new meds- pt is responsible to pay $2000 OOP costs then all costs are covered.
brilinta- first month $429--then $ 107/month
Entresto- first month $533 then $138
farxiga- first month- $533 then $138
jardiance first month $ 540- then $ 145
[2025-01-27 17:16] LABS: Glucose - Point of Care 119 mg/dl (70-99)
[2025-01-27] MEDS: CRESTOR 20 MG PO (17:40)
[2025-01-27] MEDS: AMARYL 4 MG PO (18:06)
[2025-01-27] MEDS: LOVENOX 40 MG SC (18:06)
--- NOTE | 2025-01-27 18:19 | PTCARENOTE ---
pt continues to be sr on the monitor, hr in the 90s, vss. pt offers no complaints at this time. right radial dressing CDI. pt educated on plan of care and pt verbalized understanding. call nelson within reach.
[2025-01-27] MEDS: BRILINTA 90 MG PO (19:40)
[2025-01-27] MEDS: TUMS CHEWABLE TABLET 200 MG PO (20:10)
[2025-01-27] MEDS: ELAVIL 125 MG PO (22:03)
[2025-01-27] MEDS: TYLENOL 650 MG PO (22:04)
[2025-01-27 22:21] LABS: Glucose - Point of Care 97 mg/dl (70-99)
[2025-01-27 22:54] LABS: COVID-19 Antigen Negative (Negative)
--- NOTE | 2025-01-27 23:41 | W.PN.UPDATE ---
Update Note
Progress Note Update
New onset of fever 100.8, bp 115/73, hr 85, spo2 96%.
Cinthya SOB, or any other symptoms.
Covid, flu, chest xray, ua, lactic acid and blood culture ordered.
[2025-01-27] MEDS: ROBITUSSIN 200 MG PO (23:57)
--- NOTE | 2025-01-28 00:58 | PTCARENOTE ---
Pt reported feeling flushed, hot, clammy, sore throat, and dry non productive cough. Temp noted to be 100.8 at this time. BEVERLY Eastman notified. Rec'd order for covid/flu test, lactic acid, blood cultures, and chest XRAY. Tylenol given as
ordered for temperature and pt reported some relief after 15 minutes. Temp noted to be 99.7 at this time.
Rec'd pt at toribio of shift. PT AAO*3, VSS, and SR on TELE monitor. Scheduled pain medications given as ordered at this time. Pt resting with call nelson in reach and plan of care ongoing at this time. See MAR and flowchart for full pt care and
assessment.
[2025-01-28 02:22] VITALS: BP 95/65
[2025-01-28 02:22] LABS: % Basophils 0.9 % (0-2); % Eosinophils 2.5 % (0-6); % Immature Granulocytes 0.3 % (0-0.5); % Lymphocytes 18.6 % (20.5-51.1); % Monocytes 11.5 % (1.7-9.3); % Neutrophils 66.2 % (42.2-75.2); Absolute Basophils 0.1 10^3/uL (0-0.2); Absolute Eosinophils 0.2 10^3/uL (0-0.7); Absolute Lymphocytes 1.8 10^3/uL (1.2-3.4); Absolute Monocytes 1.1 10^3/uL (0.1-0.6); Absolute Neutrophils 6.4 10^3/uL (1.4-6.5); Hematocrit 45.7 % (39.0-52.0); Hemoglobin 15.1 g/dL (13.0-18.0); Mean Corpuscular Hgb 28.9 pg (27.0-31.0); Mean Corpuscular Volume 87.5 fL (80.0-94.0); Mean Platelet Volume 10.9 fL (7.4-10.4); Nucleated Red Blood Cells % 0 % (-); Platelet Count 218 10^3/uL (130-400); Red Blood Cell Count 5.22 10^6/uL (4.70-6.10); Red Cell Dist. Width 15.7 % (11.5-14.5); White Blood Cell Count 9.7 10^3/uL (4.8-10.8)
[2025-01-28 02:24] VITALS: BP 96/67
[2025-01-28 02:35] VITALS: BMI 31.7
[2025-01-28 02:35] LABS: Lactic Acid 1.2 mmol/L (0.7-2.0)
[2025-01-28 02:43] VITALS: BP 93/63
[2025-01-28 02:44] LABS: Urine Albumin 1+ (Neg - Trace); Urine Bilirubin Negative (Negative); Urine Character Clear (Clear); Urine Color Yellow; Urine Glucose Negative (Negative); Urine Ketone Negative (Negative); Urine Leukocyte Negative (Negative); Urine Nitrite Negative (Negative); Urine Occult Blood Negative (Negative); Urine Urobilinogen Negative (Neg - 1+)
[2025-01-28 02:46] LABS: ALT (SGPT) 28 U/L (0-50); AST (SGOT) 29 U/L (17-59); Albumin 4.3 g/dl (3.5-5.0); Alkaline Phosphatase 69 U/L (38-126); Blood Urea Nitrogen 30 mg/dl (9-20); Carbon Dioxide 29 mmol/L (22-30); Chloride 104 mmol/L (98-107); Estimated Creatinine Clearance 76 ml/min; Glucose 157 mg/dl (70-99); HDL Cholesterol 44 mg/dl; LDL Cholesterol, Calculated 53 mg/dl; Potassium 4.7 mmol/L (3.5-5.1); Sodium 140 mmol/L (135-145); Total Bilirubin 1.1 mg/dl (0.2-1.3); Total Cholesterol 142 mg/dl (50-199); Total Protein 7.5 g/dl (6.3-8.2); Triglyceride 228 mg/dl (10-149); Very Low Density Lipoprotein 45 mg/dl (0-30); eGFR > 60.00
[2025-01-28 02:56] LABS: Urine Red Blood Cell None Seen /HPF (0-2)
[2025-01-28] MEDS: SYNTHROID 150 MCG PO (06:34)
[2025-01-28 07:21] VITALS: BP 131/76
[2025-01-28 07:26] VITALS: BP 119/67
[2025-01-28 08:18] LABS: Glucose - Point of Care 92 mg/dl (70-99)
[2025-01-28] MEDS: DELTASONE 5 MG PO (08:22)
[2025-01-28] MEDS: ROXICODONE 5 MG PO ×2 (08:22→13:23)
[2025-01-28] MEDS: OXYCONTIN (CONTROLLED RELEASE) 30 MG PO (08:22)
[2025-01-28] MEDS: ASPIR LOW (ENTERIC COATED) 81 MG PO (08:22)
[2025-01-28] MEDS: TOPROL XL 50 MG PO (08:22)
[2025-01-28] MEDS: LIORESAL 10 MG PO (08:22)
[2025-01-28] MEDS: NOVOLOG FLEXPEN-LOW RESISTANCE SC ×2 (08:22→12:22)
[2025-01-28] MEDS: PROTONIX 40 MG PO (08:22)
[2025-01-28] MEDS: BUSPAR 7.5 MG PO (08:22)
[2025-01-28] MEDS: BRILINTA 90 MG PO (08:22)
[2025-01-28] MEDS: TYLENOL 650 MG PO (08:24)
--- NOTE | 2025-01-28 09:54 | PN.CDI ---
Addendum entered and electronically signed by Sunny Kat MD 01/28/25 18:47:
dependency cannot be justified only because of prescription
Original Note:
CDI
- -
CDI:
Physician Documentation Request
Admit Date: 01/24/25 20:37
Dear Doctor Shey,
Patient admitted for acute heart failure.
H&P: 'chronic pain on chronic oral opiates'
Medications:
Oxycodone HCl (Oxycontin 15 Mg Controlled Release Tablet) 30 mg PO BID EBONY
Stop: 02/07/25 21:59
Last Admin: 01/28/25 08:22 Dose: 30 mg
Oxycodone HCl (Oxycodone 5 Mg Regular Release Tablet) 5 mg PO QID EBONY
Stop: 02/07/25 21:59
Last Admin: 01/28/25 08:22 Dose: 5 mg
If possible, please provide further specificity as outlined below:
Opioid dependence
Opioid use
Other
Use of terms such as suspected, likely, concern for, or probable (associated with a specific diagnosis that is being evaluated, monitored, or treated as if it exists) are acceptable and can be coded in the inpatient setting, when documented at the
time of discharge.
Thank you,
Sarah Ayala RN, BSN
CDI Specialist
Available via [place] text
Please use your independent medical judgment in providing your response.
[2025-01-28] MEDS: ANESTHETIC LOZENGE 1 LOZENGE PO (11:12)
--- NOTE | 2025-01-28 11:21 | PTCARENOTE ---
Pt c/o sore throat, tylenol given without relief, cepacol lozenge given as ordered. Remains with occasional loose, strategic marketing associate cough, lungs clear. Afebrile at present.
--- NOTE | 2025-01-28 11:23 | W.PN.HOSP.TC ---
Addendum entered and electronically signed by Sunny Kat MD 01/28/25 11:33:
Levaquin 2/2 allergies
Original Note:
Today's Communication/Plan
-
dc
Assessment / Plan
Assessment / Plan
64yo M with PMHx of HTN, hypothyroidism, HLD, BECK, psoriatic arthritis, Hx of pulmonary embolism, anxiety, DM came with b/l LE swelling, found CHF and had cardiac cath on 01/27/25 with stent to RCA. Had episode of fever overnight, possible viral vs
bronchitis. Can continue to follow up with his PCP upon d/c. Reasonable for short course of Doxy. Medically stable for d/c home
A/P:
#Acute HFrEF
#Nonischemic myocardial injury
DIuretics, daily weight, follow Cr and electrolytes, strict I&O
Cardiology follows: completed hep drip
S/P cardiac cath - cont DAPT
Echo: EF 30-35% with multiple wwall motion abnormalities
Telemetry
#Fever with sore throat
some cough since admission, but neither CT nor chest XR showed pneumonia. Possible viral disease, however COVID-19 and influenza neg
UA neg
Might be component of bronchitis
Reasonable short course of Doxy upon d/c
Monitor at home
#DM type 2 with circulatory complications
COnt Amaryl
Accughecks, DM diet, Insulin SS
#Hypothyroidism
#Psoriatic arthritis
#anxiety
cont home meds
#1.8 cm probable sebaceous cyst within the superficial subcutaneous tissues of the left mid to upper chest wall
Follow up with PCP
DVT ppx lovenox
Full code
I have spent at least 58min reviewing chart, test reuslts, communication with consultants and providing direct patient care
Anticipated Discharge: Today
Subjective/Interval History
-
Date of Service: January 28, 2025
Objective Data
-
Labs:
Laboratory Results
01/28/25
02:10
WBC 9.7
Hgb 15.1
Hct 45.7
Plt Count 218
Sodium 140
Potassium 4.7
Chloride 104
Carbon Dioxide 29
BUN 30 H
Creatinine 1.2
Glucose 157 H
Calcium 9.0
Total Bilirubin 1.1
AST 29
ALT 28
Alkaline Phosphatase 69
Vital Signs:
Vital Signs
Temp Pulse Resp BP Pulse Ox
97.6 F 70 20 119/67 96
01/28/25 07:26 01/28/25 10:00 01/28/25 07:26 01/28/25 07:26 01/28/25 07:26
I&O
01/27/25 01/28/25 01/29/25
06:59 06:59 06:59
Intake Total 480 / 480 360 / 360
Output Total 1500 / 1500 1200 / 1200
Balance -1020 / -1020 -840 / -840
Review of Systems
-
History Source: Patient
All other systems: Reviewed and negative
EENT: Reports Sore Throat
Physical Exam
-
General: No Apparent Distress
HEENT: Normocephalic
Respiratory: Clear to Auscultation
GI: Soft, Nontender and Nondistended
Skin: Warm
Neuro: Awake, Alert, Oriented and AO x 3
Psych: Calm
[2025-01-28 11:30] VITALS: BP 126/70
--- NOTE | 2025-01-28 11:33 | W.DCSUMMARY ---
Discharge Summary
Discharge Data
Date of Admission: 01/24/25
Date of Discharge: 01/28/25
-
Pending Results: No
Hospital Course
64yo M with PMHx of HTN, hypothyroidism, HLD, BECK, psoriatic arthritis, Hx of pulmonary embolism, anxiety, DM came with b/l LE swelling, found CHF and had cardiac cath on 01/27/25 with stent to RCA. Had episode of fever overnight, possible viral vs
bronchitis. Can continue to follow up with his PCP upon d/c. Reasonable for short course of Levaquin (due to Erythromycin and tetracycline allergy). Medically stable for d/c home
I have spent at least 58min reviewing chart, test reuslts, communication with consultants and providing direct patient care
Patient was managed for:
#Acute HFrEF
#Nonischemic myocardial injury
#Fever with sore throat
#DM type 2 with circulatory complications
#Hypothyroidism
#Psoriatic arthritis
#anxiety
#1.8 cm probable sebaceous cyst within the superficial subcutaneous tissues of the left mid to upper chest wall
Discharge Plan
-
Patient Disposition: Home (Routine Discharge)
Discharge Diagnosis/Procedures: Angioplasty and stent to Right Coronary artery
Diet: Low Cholesterol
Activity: As tolerated
Other Services: Cardiac Rehab
Instructions: *PCP/Other Pcb Design Engineer Heart Failure Instructions
Stand Alone Forms: DC Instructions- Cath/EP Lab
Referrals:
Yue Knowles PA-C [Specified Professional Personl] - 02/19/25 1:20 pm (Cardiology followup appointment)
Kevon Bender DO [Family Provider] -
Prescriptions:
New
levofloxacin 750 mg tablet
750 mg PO DAILY Qty: 5 0RF
aspirin 81 mg Tablet,Delayed Release (Dr/Ec)
81 mg PO DAILY Qty: 30 0RF
ticagrelor [Brilinta] 90 mg Tablet
90 mg PO BID Qty: 60 0RF
metoprolol succinate 50 mg Tablet Extended Release 24 Hr
50 mg PO BID Qty: 60 0RF
pantoprazole 40 mg Tablet,Delayed Release (Dr/Ec)
40 mg PO DAILY Qty: 30 0RF
rosuvastatin 20 mg Tablet
20 mg PO QPM Qty: 30 0RF
Continued
oxycodone 5 MG tablet
5 mg PO QID
Movantik 25 MG tablet
25 mg PO HS
prednisone 10 MG tablet
5 mg PO BID
amitriptyline 50 MG tablet
125 mg PO HS
buspirone 5 mg Tablet
7.5 mg PO TID
metformin 850 mg Tablet
850 mg PO BID
baclofen 10 mg Tablet
10 mg PO TID
glimepiride 4 mg Tablet
4 mg PO QPM
levothyroxine [Synthroid] 150 mcg Tablet
150 mcg PO DAILY
oxycodone [OxyContin] 30 mg Tablet,Oral Only,Ext.Rel.12 Hr
30 mg PO BID
Discontinued
rosuvastatin [Crestor] 5 mg Tablet
5 mg PO QPM
Discharge Orders:
Discharge Patient (As Directed); Ordered 01/28/25
Ordered By: Sunny Kat
Care Plan Goals
Care Plan Goals:
Problem: Readiness for enhanced knowledge related to diagnosis and treatment plan
Goal: Understand your diagnosis and treatment plan needs, including medications if applicable.
Instructions: Know your diagnosis, underlying causes and treatment plan options, including medications if applicable. Consult with your health care team to learn about your diagnosis and treatment plan, including medications if applicable.
Discharge Date and Time
Print Language: DIVEHI
--- NOTE | 2025-01-28 11:36 | W.PN.CARDCBS ---
Today's Communication / Plan
-
Patient was discharged before he was seen by cardiology service 01/28/25. Task to cardiology office who will call patient to go over the need for daily weights at home and watching for signs/symptoms of CHF. Cardiology office will also call patient
to facilitate an appt to be seen within 1 week as established by CHF guidelines. Cardiology office will also facilitate refills on cardiac meds, patient was d/c'd to home with prescriptions for 1 month, but will need long-term meds.
Impression / Plan
-
PCP: Dr. Kevon Bender
Card: Dr. Correa, not seen since 2020
Impression:
Admitted with acute HF and elevated Troponin 01/24/25
Acute HFrEF
ICM EF 30-35% by echo 01/25/25, a bit better at 45% by v-gram 01/27/25
Elevated Troponin, possible subacute UT, initial Troponin 0.209 and trending down thereafter
CAD s/p 5.0 mm Thornton CHAPARRO to prox RCA 01/27/25
Hypertension
Hyperlipidemia
DM 2
History of bilateral pulmonary embolism 2021
Hepatitis B
Rheumatoid arthritis/psoriatic arthritis on chronic opioids
Hypothyroidism
Chronic steroid use.
Echo July 2024, EF 55 6%, mild LVH, no significant valve disease with PA pressure 30
Echo 01/25/2025: EF 30-35%, hypokinesis in inferior and LAD distribution, apex is akinetic, moderate LVH, normal RV, normal atria, aortic sclerosis, mitral valve normal, could not determine pulmonary artery pressure
V-gram 01/27/25: EF 45%
Plan:
-Patient with new acute HF on admission and elevated Troponin that trended down thereafter. Patient suspected to have a possible [id number] UT based on evolution of EKG. However troponin was not dramatically elevated and no acute ischemic
changes so thoughts were possible CAD vs Takotsubo.
-Patient had cardiac cath 01/27/25 and was found to have 80% prox RCA lesion that had PTCA and a 5 mm David CHAPARRO.
-New to aspirin this admission
-New to Brilinta 90 mg BID this admission and appreciate help of CM on checking cost, patient was agreeable to cost
-LDL 53 and outpatient dose of Crestor increased to 20 mg daily
-Patient also with new acute HF. EF initially 30-35% by echo 01/25/25, but was better at 45% by v-gram 01/27/25.
-New to Toprol XL 50 mg BID this admission
-Patient was not started on REGINALDO/ARB/ARNI/aldosterone antagonist due to ALEXEI, Cre as high as 1.4, but improved to 1.2 on day of d/c 01/28/25. CM checked on cost of Entresto and the first month would be $533 then $138 a month and patient was agreeable
to this.
-Patient was diuresed Lasix 40 mg IV daily. Patient was not taking a diuretic prior to admission. Patient was not discharged home on a diuretic due to ALEXEI.
-Patient was discharged before he was seen by cardiology service 01/28/25. Task to cardiology office who will call patient to go over daily weights and watching for signs/symptoms of CHF. Cardiology office will also call patient to facilitate an appt
to be seen within 1 week as established by CHF guidelines. Cardiology office will also facilitate refills on cardiac meds, patient was d/c'd to home with prescriptions for 1 month, but will need long-term meds.
Progress Note - Private Branch Exchange Operator
Subjective
Date of Service: January 28, 2025
Objective
Labs:
01/28/25 02:10
01/28/25 02:10
Labs
Hgb 15.1 g/dL (13.0-18.0) 01/28/25 02:10
Hct 45.7 % (39.0-52.0) 01/28/25 02:10
Plt Count 218 10^3/uL (130-400) 01/28/25 02:10
PT 13.1 Sec (11.4-14.6) 01/24/25 12:55
INR 0.96 01/24/25 12:55
APTT Cancelled 01/27/25 09:50
Sodium 140 mmol/L (135-145) 01/28/25 02:10
Potassium 4.7 mmol/L (3.5-5.1) 01/28/25 02:10
BUN 30 mg/dl (9-20) H 01/28/25 02:10
Creatinine 1.2 mg/dL (0.7-1.3) 01/28/25 02:10
Glucose 157 mg/dl (70-99) H 01/28/25 02:10
Vital Signs and I&O:
Vital Signs
Temp Pulse Resp BP Pulse Ox
98 F 70 20 119/67 92
01/28/25 11:30 01/28/25 10:00 01/28/25 11:30 01/28/25 07:26 01/28/25 11:30
Vital Signs
Temp Pulse Resp BP Pulse Ox
98 F 70 20 119/67 92
01/28/25 11:30 01/28/25 10:00 01/28/25 11:30 01/28/25 07:26 01/28/25 11:30
Intake & Output
01/26/25 01/27/25 01/28/25 01/29/25
06:59 06:59 06:59 06:59
Intake Total 600 / 600 480 / 480 360 / 360
Output Total 900 / 900 1500 / 1500 1200 / 1200
Balance -300 / -300 -1020 / -1020 -840 / -840
[2025-01-28 11:57] LABS: Glucose - Point of Care 137 mg/dl (70-99)
== END 2025-01-28 13:37 | disposition home or self-care (01) | DRG 321 ==
LOC: IVU 20:37
PROVIDERS: Clinical Nurse Specialist Family Health; Emergency Medicine; Hospitalist; Internal Medicine Cardiovascular Disease; Internal Medicine Interventional Cardiology; Nurse Practitioner; Nurse Practitioner Family; ADMITTING PHYSICIAN Internal Medicine; ATTENDING PHYSICIAN Internal Medicine; CONSULT PHYSICIAN Internal Medicine Cardiovascular Disease; EMERGENCY PHYSICIAN Student in an Organized Health Care Education/Training Program; FAMILY PHYSICIAN Family Medicine
PROC: B2111ZZ Fluoroscopy of Multiple Coronary Arteries using Low Osmolar Contrast (ICD-10-PCS; 2025-01-27)
PROC: 4A023N7 Measurement of Cardiac Sampling and Pressure, Left Heart, Percutaneous Approach (ICD-10-PCS; 2025-01-27)
PROC: 027034Z Dilation of Coronary Artery, One Artery with Drug-eluting Intraluminal Device, Percutaneous Approach (ICD-10-PCS; 2025-01-27)
DX: I5A Non-ischemic myocardial injury (non-traumatic) (principal); I50.21 Acute systolic (congestive) heart failure; I50.41 Acute combined systolic (congestive) and diastolic (congestive) heart failure; I11.0 Hypertensive heart disease with heart failure; E03.9 Hypothyroidism, unspecified; L40.50 Arthropathic psoriasis, unspecified; L72.3 Sebaceous cyst; I25.10 Atherosclerotic heart disease of native coronary artery without angina pectoris; E78.00 Pure hypercholesterolemia, unspecified; E11.9 Type 2 diabetes mellitus without complications; Z86.711 Personal history of pulmonary embolism; M06.9 Rheumatoid arthritis, unspecified; Z79.52 Long term (current) use of systemic steroids; E66.811 Obesity, class 1; F41.0 Panic disorder [episodic paroxysmal anxiety]; G47.33 Obstructive sleep apnea (adult) (pediatric); G89.29 Other chronic pain; K59.00 Constipation, unspecified; L40.0 Psoriasis vulgaris; Z11.52 Encounter for screening for COVID-19; Z68.32 Body mass index [BMI] 32.0-32.9, adult; Z87.891 Personal history of nicotine dependence; Z88.0 Allergy status to penicillin; Z88.1 Allergy status to other antibiotic agents; Z79.890 Hormone replacement therapy; Z79.82 Long term (current) use of aspirin; Z79.84 Long term (current) use of oral hypoglycemic drugs; Z79.891 Long term (current) use of opiate analgesic; Z79.899 Other long term (current) drug therapy; Z91.199 Patient's noncompliance with other medical treatment and regimen due to unspecified reason
CPT/HCPCS: 71045; 71046; 71275; 80053; 80061; 81003; 81015; 82962; 83036; 83605; 83735; 83880; 84443; 84484; 85025; 85027; 85347; 85610; 85730; 86803; 87040; 87502; 87811; 93005; 93306; 93458; 94760; 96374; 96375; 99152; 99153; 99285; C1725; C1753; C1769; C1874; C1894; C9600; Q9967

== ENCOUNTER → 2025-02-04 15:46 | Outpatient (REF) | payer MEDICARE, OTHER, SELFPAY ==
[2025-02-04 17:26] LABS: % Basophils 0.9 % (0-2); % Eosinophils 1.6 % (0-6); % Immature Granulocytes 1.1 % (0-0.5); % Lymphocytes 18.7 % (20.5-51.1); % Neutrophils 70.7 % (42.2-75.2); Absolute Basophils 0.2 10^3/uL (0-0.2); Absolute Eosinophils 0.3 10^3/uL (0-0.7); Absolute Immature Granulocytes 0.2 10^3/uL (0-0.05); Absolute Lymphocytes 3.8 10^3/uL (1.2-3.4); Absolute Monocytes 1.4 10^3/uL (0.1-0.6); Absolute Neutrophils 14.3 10^3/uL (1.4-6.5); Hematocrit 46.2 % (39.0-52.0); Hemoglobin 15.1 g/dL (13.0-18.0); Mean Corp Hgb Conc. 32.7 g/dL (33.0-37.0); Mean Corpuscular Volume 88.7 fL (80.0-94.0); Nucleated Red Blood Cells % 0 % (-); Platelet Count 320 10^3/uL (130-400); Red Blood Cell Count 5.21 10^6/uL (4.70-6.10); Red Cell Dist. Width 15.2 % (11.5-14.5); White Blood Cell Count 20.2 10^3/uL (4.8-10.8)
[2025-02-04 17:41] LABS: ALT (SGPT) 45 U/L (0-50); AST (SGOT) 36 U/L (17-59); Albumin 4.4 g/dl (3.5-5.0); Alkaline Phosphatase 81 U/L (38-126); Blood Urea Nitrogen 30 mg/dl (9-20); Calcium 9.4 mg/dl (8.4-10.2); Carbon Dioxide 25 mmol/L (22-30); Chloride 105 mmol/L (98-107); Glucose 169 mg/dl (70-99); Potassium 4.8 mmol/L (3.5-5.1); Sodium 142 mmol/L (135-145); Total Bilirubin 0.5 mg/dl (0.2-1.3); Total Protein 7.3 g/dl (6.3-8.2); eGFR > 60.00
[2025-02-04 17:46] LABS: NT-proBNP 4180 pg/ml
== END ==
LOC: REG 15:46
PROVIDERS: ATTENDING PHYSICIAN Physician Assistant Medical; FAMILY PHYSICIAN Family Medicine
DX: I50.23 Acute on chronic systolic (congestive) heart failure (principal)
CPT/HCPCS: 36415; 80053; 83880; 85025

== ENCOUNTER → 2025-02-05 13:56 | Outpatient (REF) | payer MEDICARE, OTHER, SELFPAY | LOC: RCS 13:56 | PROVIDERS: ATTENDING PHYSICIAN Nuclear Medicine Nuclear Cardiology; REFERRING PHYSICIAN Family Medicine | DX: I50.23 Acute on chronic systolic (congestive) heart failure (principal); R06.02 Shortness of breath; I10 Essential (primary) hypertension | CPT/HCPCS: 71046; 93005 ==

== ENCOUNTER → 2025-03-14 07:30 | Outpatient (REF) | payer MEDICARE, OTHER, SELFPAY ==
[2025-03-14 08:19] LABS: % Basophils 0.9 % (0-2); % Eosinophils 2.8 % (0-6); % Immature Granulocytes 0.3 % (0-0.5); % Monocytes 6.8 % (1.7-9.3); % Neutrophils 65.2 % (42.2-75.2); Absolute Basophils 0.1 10^3/uL (0-0.2); Absolute Eosinophils 0.3 10^3/uL (0-0.7); Absolute Lymphocytes 2.5 10^3/uL (1.2-3.4); Absolute Monocytes 0.7 10^3/uL (0.1-0.6); Absolute Neutrophils 6.9 10^3/uL (1.4-6.5); Hematocrit 39.2 % (39.0-52.0); Hemoglobin 13.3 g/dL (13.0-18.0); Mean Corp Hgb Conc. 33.9 g/dL (33.0-37.0); Mean Corpuscular Hgb 30.1 pg (27.0-31.0); Mean Corpuscular Volume 88.7 fL (80.0-94.0); Mean Platelet Volume 11.9 fL (7.4-10.4); Nucleated Red Blood Cells % 0 % (-); Platelet Count 232 10^3/uL (130-400); Red Blood Cell Count 4.42 10^6/uL (4.70-6.10); Red Cell Dist. Width 15.4 % (11.5-14.5); White Blood Cell Count 10.5 10^3/uL (4.8-10.8)
[2025-03-14 08:35] LABS: ALT (SGPT) 39 U/L (0-50); AST (SGOT) 27 U/L (17-59); Albumin 4.1 g/dl (3.5-5.0); Alkaline Phosphatase 60 U/L (38-126); Blood Urea Nitrogen 27 mg/dl (9-20); Calcium 9.5 mg/dl (8.4-10.2); Carbon Dioxide 28 mmol/L (22-30); Chloride 105 mmol/L (98-107); Glucose 118 mg/dl (70-99); HDL Cholesterol 43 mg/dl; LDL Cholesterol, Calculated 37 mg/dl; Potassium 5.2 mmol/L (3.5-5.1); Sodium 141 mmol/L (135-145); Total Bilirubin 0.5 mg/dl (0.2-1.3); Total Cholesterol 119 mg/dl (50-199); Total Protein 6.8 g/dl (6.3-8.2); Triglyceride 196 mg/dl (10-149); Very Low Density Lipoprotein 39 mg/dl (0-30); eGFR > 60.00
[2025-03-14 08:42] LABS: NT-proBNP 69.7 pg/ml
[2025-03-14 08:46] LABS: Glycohemoglobin (HgbA1c) 6.5 % (4.0-5.6)
[2025-03-14 09:51] LABS: Microalbumin/creatinine Ratio 10.2 mg/g
== END ==
LOC: REG 07:30
PROVIDERS: ATTENDING PHYSICIAN Physician Assistant Medical; FAMILY PHYSICIAN Family Medicine
DX: I50.21 Acute systolic (congestive) heart failure (principal); E11.59 Type 2 diabetes mellitus with other circulatory complications; I50.22 Chronic systolic (congestive) heart failure
CPT/HCPCS: 36415; 80053; 80061; 82043; 82570; 83036; 83880; 85025

== ENCOUNTER 2025-03-17 10:04 | Outpatient (RCR) | payer MEDICARE, OTHER, SELFPAY ==
[2025-03-13 10:24] LABS: Glucose - Point of Care 92 mg/dl (70-99)
[2025-03-17 09:24] LABS: Glucose - Point of Care 116 mg/dl (70-99)
[2025-03-17 10:24] LABS: Glucose - Point of Care 85 mg/dl (70-99)
== END 2025-03-17 23:59 | disposition home or self-care (01) ==
LOC: CRHB 10:04
PROVIDERS: ATTENDING PHYSICIAN Internal Medicine Cardiovascular Disease; REFERRING PHYSICIAN Nuclear Medicine Nuclear Cardiology
DX: I25.10 Atherosclerotic heart disease of native coronary artery without angina pectoris (principal); I25.2 Old myocardial infarction; Z95.5 Presence of coronary angioplasty implant and graft; I10 Essential (primary) hypertension; E78.5 Hyperlipidemia, unspecified
CPT/HCPCS: 82962; G0422; G0423

== ENCOUNTER 2025-04-14 10:13 | Outpatient (RCR) | payer MEDICARE, OTHER, SELFPAY ==
[2025-03-19 09:26] LABS: Glucose - Point of Care 117 mg/dl (70-99)
[2025-03-19 10:24] LABS: Glucose - Point of Care 90 mg/dl (70-99)
[2025-03-24 09:24] LABS: Glucose - Point of Care 84 mg/dl (70-99)
[2025-03-24 09:33] LABS: Glucose - Point of Care 97 mg/dl (70-99)
[2025-03-24 10:27] LABS: Glucose - Point of Care 115 mg/dl (70-99)
[2025-03-26 09:14] LABS: Glucose - Point of Care 135 mg/dl (70-99)
[2025-03-26 10:13] LABS: Glucose - Point of Care 83 mg/dl (70-99)
[2025-03-28 09:09] LABS: Glucose - Point of Care 174 mg/dl (70-99)
[2025-03-28 10:03] LABS: Glucose - Point of Care 163 mg/dl (70-99)
[2025-03-31 09:30] LABS: Glucose - Point of Care 168 mg/dl (70-99)
[2025-04-07 10:12] LABS: Glucose - Point of Care 76 mg/dl (70-99)
[2025-04-07 10:51] LABS: Glucose - Point of Care 94 mg/dl (70-99)
[2025-04-09 09:28] LABS: Glucose - Point of Care 147 mg/dl (70-99)
[2025-04-09 10:26] LABS: Glucose - Point of Care 130 mg/dl (70-99)
== END 2025-04-14 23:59 | disposition home or self-care (01) ==
LOC: CRHB 10:13
PROVIDERS: ATTENDING PHYSICIAN Internal Medicine Cardiovascular Disease; REFERRING PHYSICIAN Nuclear Medicine Nuclear Cardiology
DX: I25.10 Atherosclerotic heart disease of native coronary artery without angina pectoris (principal); I25.2 Old myocardial infarction; Z95.5 Presence of coronary angioplasty implant and graft; I10 Essential (primary) hypertension; E78.5 Hyperlipidemia, unspecified
CPT/HCPCS: 82962; G0422; G0423

== ENCOUNTER 2025-05-14 10:19 | Outpatient (RCR) | payer MEDICARE, OTHER, SELFPAY ==
[2025-04-25 10:28] LABS: Glucose - Point of Care 76 mg/dl (70-99)
[2025-04-25 10:41] LABS: Glucose - Point of Care 84 mg/dl (70-99)
== END 2025-05-14 23:59 | disposition home or self-care (01) ==
LOC: CRHB 10:19
PROVIDERS: ATTENDING PHYSICIAN Internal Medicine Cardiovascular Disease; REFERRING PHYSICIAN Nuclear Medicine Nuclear Cardiology
DX: I25.10 Atherosclerotic heart disease of native coronary artery without angina pectoris (principal); Z95.5 Presence of coronary angioplasty implant and graft
CPT/HCPCS: 82962; G0422; G0423

== ENCOUNTER → 2025-05-16 12:57 | Outpatient (REF) | payer MEDICARE, OTHER, SELFPAY | LOC: RCS 12:57 | PROVIDERS: ATTENDING PHYSICIAN Nuclear Medicine Nuclear Cardiology; FAMILY PHYSICIAN Family Medicine | DX: I10 Essential (primary) hypertension (principal) | CPT/HCPCS: 93306 ==

== ENCOUNTER 2025-06-16 10:09 | Outpatient (RCR) | payer MEDICARE, OTHER, SELFPAY ==
[2025-05-21 09:17] LABS: Glucose - Point of Care 133 mg/dl (70-99)
[2025-05-21 10:16] LABS: Glucose - Point of Care 120 mg/dl (70-99)
[2025-05-28 09:19] LABS: Glucose - Point of Care 116 mg/dl (70-99)
[2025-05-28 10:16] LABS: Glucose - Point of Care 140 mg/dl (70-99)
[2025-05-30 09:21] LABS: Glucose - Point of Care 139 mg/dl (70-99)
[2025-05-30 10:19] LABS: Glucose - Point of Care 110 mg/dl (70-99)
[2025-06-02 09:26] LABS: Glucose - Point of Care 161 mg/dl (70-99)
[2025-06-02 10:53] LABS: Glucose - Point of Care 136 mg/dl (70-99)
[2025-06-06 09:23] LABS: Glucose - Point of Care 227 mg/dl (70-99)
[2025-06-06 10:23] LABS: Glucose - Point of Care 135 mg/dl (70-99)
[2025-06-11 09:20] LABS: Glucose - Point of Care 127 mg/dl (70-99)
[2025-06-11 10:18] LABS: Glucose - Point of Care 102 mg/dl (70-99)
== END 2025-06-16 23:59 | disposition home or self-care (01) ==
LOC: CRHB 10:09
PROVIDERS: ATTENDING PHYSICIAN Internal Medicine Cardiovascular Disease; REFERRING PHYSICIAN Nuclear Medicine Nuclear Cardiology
DX: I25.10 Atherosclerotic heart disease of native coronary artery without angina pectoris (principal); I25.2 Old myocardial infarction; Z95.5 Presence of coronary angioplasty implant and graft
CPT/HCPCS: 82962; G0422; G0423

== ENCOUNTER 2025-06-27 10:12 | Outpatient (RCR) | payer MEDICARE, OTHER, SELFPAY | END 2025-06-27 13:45 | disposition home or self-care (01) | LOC: CRHB 10:12 | PROVIDERS: ATTENDING PHYSICIAN Internal Medicine Cardiovascular Disease; REFERRING PHYSICIAN Nuclear Medicine Nuclear Cardiology | DX: I25.10 Atherosclerotic heart disease of native coronary artery without angina pectoris (principal); I25.2 Old myocardial infarction; Z95.5 Presence of coronary angioplasty implant and graft | CPT/HCPCS: G0422; G0423 ==

== ENCOUNTER → 2025-06-27 15:08 | Outpatient (REF) | payer MEDICARE, OTHER, SELFPAY | LOC: DHSLP 15:08 | PROVIDERS: ATTENDING PHYSICIAN Student in an Organized Health Care Education/Training Program; FAMILY PHYSICIAN Family Medicine | DX: G47.33 Obstructive sleep apnea (adult) (pediatric) (principal); R09.02 Hypoxemia | CPT/HCPCS: 95800 ==

== ENCOUNTER 2025-08-01 06:09 | Day surgery (SDC) | payer MEDICARE, OTHER, SELFPAY ==
[2025-08-01 12:15] VITALS: BMI 32.4
[2025-08-01 12:28] LABS: Glucose - Point of Care 96 mg/dl (70-99)
[2025-08-01 12:35] VITALS: BP 96/68; BMI 32.4
[2025-08-01 13:19] VITALS: BP 101/64
[2025-08-01 13:30] VITALS: BP 110/66
[2025-08-01 13:45] VITALS: BP 106/56
== END 2025-08-01 13:58 | disposition home or self-care (01) ==
LOC: SDS 06:09
PROVIDERS: ATTENDING PHYSICIAN Student in an Organized Health Care Education/Training Program
DX: G47.33 Obstructive sleep apnea (adult) (pediatric) (principal); Z68.31 Body mass index [BMI] 31.0-31.9, adult; J34.89 Other specified disorders of nose and nasal sinuses
CPT/HCPCS: 42975; 82962

== ENCOUNTER → 2025-08-05 11:20 | Outpatient (REF) | payer MEDICARE, OTHER, SELFPAY | LOC: HWRAD 11:20 | PROVIDERS: ATTENDING PHYSICIAN Student in an Organized Health Care Education/Training Program; FAMILY PHYSICIAN Family Medicine | DX: J32.9 Chronic sinusitis, unspecified (principal) | CPT/HCPCS: 70486 ==